=== PATIENT | male | born 1985 | race Caucasian/White ===

== ENCOUNTER 2025-04-20 16:23 | Emergency (ER) | payer MEDICARE, SELFPAY ==
[2025-04-20] VITALS (8 sets, daily range): BP systolic 156–204; BP diastolic 92–126; PULSE 98–109; RESP 17–22; TEMP 36.9; O2SAT 95–99
--- NOTE | ~2025-04-20 | XR_ITS ---
XR chest 1V portable 04/20/2025 18:12 Indication: Shortness of breath Procedure: AP portable chest Comparison: No prior studies for comparison. Findings: Cardiomegaly with mild interstitial edema. Central venous catheter tips in the SVC. No significant effusion. No pneumothorax. No acute osseous abnormality. Mild dextrocurvature of the thoracic spine. Impression: 1: Cardiomegaly with mild interstitial edema. Reviewed, dictated and finalized at location O. Impression: 1: Cardiomegaly with mild interstitial edema.
--- OUTSIDE RECORDS SUMMARY | 2025-04-20 11:38 | XMS_ITS | Encounter Summary ---
Author Organization [facility] Address [address] [place] [address] Care Team Providers Care Industry Analyst Name Role Phone Pcp, None Primary Care Provider Unavailabl e Reason for Visit * Reason Comments Hypertension Missed dialysis for a . Feeling tachy and BP elevated. Encounter Details Date Type Department Care Team (Late st Contact Info) Description 04/20/2025 11:38 AM CDT - 04/20/2025 12:10 PM CDT Emergency ER at [address] [address] Yong Sylvester [address] [place] [id number] Hemodialysis patient Discharge Disposition: Left Against Medical Advice/Discontinued Care Social History Tobacco Use Types Packs/Day Years Used Date Smoking Tobacco: Never Assessed AUDIT-C Answer Date Recorded Q1: How often do you have a drink containing alc ohol? Monthly or less 03/22/2025 Average Number of Drinks Not on file 025 Frequency of Binge Drinking Not on file 02/25 Sex and Gender Information Value Date Recorded Sex Assigned at Not on file Legal Sex Male 12:29 PM [employer]ILVER [employer] Gender Identity Not on file Sexual Orientation Not on file documented as of this encounter Last Filed Vital Signs Vital Sign Reading Time Taken Comments Blood Pressure 213/135 04/20/2025 11:48 AM CDT Pulse 107 04/20/2025 11:48 AM CDT Temperature 37.1 C (98.7 F) 04/20/2025 11:48 AM CDT Respiratory Rate 16 04/20/2025 11:4 8 AM CDT Oxygen Saturation 99% 04/20/2025 11: 48 AM CDT Inhaled Oxygen Concentration - - Weight 126.8 kg (279 lb 9.6 oz) 025 11:48 AM CDT Height 177.8 cm (5' 10) 04/20/2025 11: 48 AM CDT Body Mass Index 40.12 04/20/2025 11:48 AM CDT documented in this encounter Medications at Time of Discharge apixaban (Eliquis) 5 MG tablet Take 1 (one) tablet by mouth 2 times daily carvedilol (Coreg) 25 MG tablet Take 1 (one) tablet by mouth 2 times daily with morning and evening meal dilTIAZem ER 24hr (Tiazac) 120 MG capsule Take 1 (one) capsule by mouth once daily diphenhydrAMINE (Benadryl) 50 MG capsuleIndication s:itching Take 1 (one) capsule by mouth every 4 hours as needed for Itching Reasons: itching hydrALAZINE (Apresoline) 25 MG tablet Take 1 (one) tablet by mouth 2 times daily as needed (For hypertension) 10 tablet 03/15/2025 losartan (Cozaar) 100 MG tablet Take 1 (one) tablet by mouth once daily documented as of this encounter ED Notes * Nereyda Pendleton RN - 04/20/2025 12:04 PM CDT Before triage could be completed, MD saw pt and pt decided he wants to leave and take self to [facility] due to us not having dialysis services. Pt stated that he called this hospital andthe steam tank operator told him that we have dialysis. We do not have an steam tank operator today and our calls go to [facility] and are then transferred if needed. Pt BP elevated. Pt is out of town for a . Unclear if he has or has not taken his daily medications. Pt did state that he was supposed to have dialysis today but could not make it. He does dialysis at an outpt facility in [facility]. His family advocate is Dr Ardon that runs that clinic per pt. MD note available for reason pt signed out AMA. AMA paperwork signed by pt. Pt ambulated to door with steady gait. Pt is alert and oriented x4. Pt is not SI or HI. * Yong Sylvester, DO - 04/20/2025 11:58 AM CDT Oliver Betina Frederic [id number] ER AT [facility] History Chief Complaint Patient presents with Hypertension Missed dialysis for a . Feeling tachy and BP elevated. Very nice gentleman. He said he is here for a that he has to go to in [place]. Apparently he called an [facility] number and asked if they have dialysis or if he needs to be admitted for dialysis and apparently he called this number here at [facility] but we do not have an steam tank operator so our phones are forwarded to [facility] and the steam tank operator at [facility] answered and stated they do have dialysis at that facility since we do not have dialysis at the [facility] facility. Patient Google the number he called which was this. Number however, it was forwarded the [facility] but patient came here asking for dialysis. He states he does not want to be seeing here. He does not want any meds here. He does not want to leave his car here because he has the . He said he drove himself here just fine so he could drive himself to [facility] just fine. He is on dialysis and he missed dialysis so that is why he maybe a little dizzy or blood pressure is up no chest pain no other problems that would preclude him from driving a few miles up the street. He will sign AMA papers since he did not want an IV started, medicine started, or transfer by ambulance since he needs his car for the . Patient will sign out AMA. General Past Medical History[1] Past Surgical History[2] Family History[3] Social History Socioeconomic History Marital status: Single Spouse name: Not on file Number of children: Not on file Years of education: Not on file Highest education level: Not on file Occupational History Not on file Tobacco Use Smoking status: Not on file Smokeless tobacco: Not on file Substance and Sexual Activity Alcohol use: Not on file Drug use: Not on file Sexual activity: Not on file Other Topics Concern Not on file Social History Narrative Not on file Social Drivers of Health Financial Resource Strain: Low Risk (01/29/2025) Received from [facility] ([facility]) Financial Resource Strain Sometimes people find that their income does not quite cover their living costs. In the last 12 months, has this happened to you?: No What is your current work situation? : Unemployed, and not seeking work (ex: student, retired, disabled, unpaid primary auto care center manager) Recent Concern: Financial Resource Strain - Medium Risk (12/30/2024) Received from [facility] Overall Financial Resource Strain (CARDIA) Difficulty of Paying Living Expenses: Somewhat hard Food Insecurity: No Food Insecurity (02/21/2025) Received from [facility] Hunger Vital Sign Worried About Running Out of Food in the Last Year: Never true Ran Out of Food in the Last Year: Never true Transportation Needs: No Transportation Needs (02/21/2025) Received from [facility] PRAPARE - Transportation Lack of Transportation (Medical): No Lack of Transportation (Non-Medical): No Recent Concern: Transportation Needs - High Risk (01/29/2025) Received from [facility] ([facility]) Transportation Has a lack of transportation kept you from medical appointments, meetings, work, or from getting things needed for daily living. Check all that apply. : Yes, it has kept me from medical appointments or from getting my medications Stress: Low Risk (01/29/2025) Received from [facility] ([facility]) Stress Over the last 2 weeks, how often have you been bothered by the following problems: feeling nervous,anxious, on edge?: Several days Over the last 2 weeks, how often have you been bothered by the following problems: Not being able to stop or control worrying?: Several days Housing Stability: Low Risk (02/21/2025) Received from [facility] Housing Stability Vital Sign Unable to Pay for Housing in the Last Year: No Number of Times Moved in the Last Year: 1 Homeless in the Last Year: No Recent Concern: Housing Stability - High Risk (01/29/2025) Received from [facility] ([facility]) Housing Stability Are you worried about losing your housing?: Yes In the past 12 months has the electric, gas, oil, or water company threatened to shut off services in your home?: Yes Review of Systems Review of Systems All other systems reviewed and are negative. Physical Exam BP (!) 213/135 Pulse 107 Temp 98.7 ??F (37.1 ??C) Resp 16 Ht 1.778 m (5' 10) Wt 126.8 kg(279 lb 9.6 oz) SpO2 99% BMI 40.12 kg/m?? Physical Exam Vitals and nursing note reviewed. Constitutional: General: He is not in acute distress. Appearance: He is ill-appearing. He is not toxic-appearing. Comments: CRF on HD Neurological: Mental Status: He is alert. Medications Medications[4] Procedures Procedures Lab Interpretation Oxygen Saturation Interpretation No results found for this visit on 04/20/25. No orders to display Progress Notes ED Course Clinical Impressions as of 04/20/25 1202 Hemodialysis patient Medical Decision Making Very nice gentleman. He said he is here for a that he has to go to in [place]. Apparently he called an [facility] number and asked if they have dialysis or if he needs to be admitted for dialysis and apparently he called this number here at [facility] but we do not have an steam tank operator so our phones are forwarded to [facility] and the steam tank operator at [facility] answered and stated they do have dialysis at that facility since we do not have dialysis at the [facility] facility. Patient Google the number he called which was this. Number however, it was forwarded the [facility] patient came here asking for dialysis. He states he does not want to be seeing here. He does not want any meds here. He does not want to leave his car here because he has the . He said he drove himself here just fine so he could drive himself to [facility] just fine. He is on dialysis and he missed dialysis so that is why he maybe a little dizzy or blood pressure is up no chest pain no other problems that would preclude him from driving a few miles up the street. He will sign AMA papers since he did not want an IV started, medicine started, or transfer by ambulance since he needs his car for the . Patient will sign out AMA. Based on the Medical Screening exam and diagnostics performed at this time, further evaluation including blood work lab work medicine for his blood pressure. Possible further evaluation may need medical admission for chronic renal failure and hemodialysis. is indicated, but the patient refuses further evaluation and treatment. Risks of evaluation/treatment refusal discussed in detail including dying permanent disability. But we do not have hemodialysis at this facility. He does not want labs IVs meds he needs his car for a .. The patient voices understanding and appears clinically competent to make this decision. The patient understands that he/she may return to the ED for re-evaluation at any point. Patient accepts 100 percent responsibility for leaving AMA but we do not have the services he called for and thought he was coming to that facility. He will drive himself up the street to [facility] No orders of the defined types were placed in this encounter. ICD-10-CM 1. Hemodialysis patient Z99.2 [1] No past medical history on file. [2] No past surgical history on file. [3] No family history on file. [4] Current Outpatient Medications Medication Sig Dispense Refill apixaban (Eliquis) 5 MG tablet Take 1 (one) tablet by mouth 2 times daily hydrALAZINE (Apresoline) 25 MG tablet Take 1 (one) tablet by mouth 2 times daily as needed (For hypertension) 10 tablet 0 * Nereyda Pendleton RN - 04/20/2025 11:48 AM CDT Missed dialysis for a . Feeling tachy and BP elevated. documented in this encounter Plan of Treatment Not on file documented as of this encounter Visit Diagnoses Diagnosis Hemodialysis patient Renal dialysis status documented in this encounter Care Teams Industry Analyst Relationship Specialty Start Date End Date Pcp, None [address] [place] [address] PCP - General 03/15/25 documented as of this encounter
--- OUTSIDE RECORDS SUMMARY | 2025-04-20 13:05 | XMS_ITS | Encounter Summary ---
Author Organization [facility] Address [address] [place] [address] Care Team Providers Care Automation Tester Name Role Phone Pcp, None Primary Care Provider Unavailabl e Reason for Visit * Reason Comments Shortness of Breath Pt presents walk in for missing scheduled dialysis today, pt typically is T Th Sat regimen. Pt currently experiencing SOB, headache, and dizziness. BP 216/139. Pt has hx of kidney failure, afib and mitral stenosis. 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 Gender Identity Not on file Sexual Orientation Not on file documented as of this encounter Last Filed Vital Signs Vital Sign Reading Time Taken Comments Blood Pressure 203/143 04/20/2025 2:45 PM CDT Pulse 106 04/20/2025 2:45 PM CDT Temperature 37 C (98.6 F) 04/20/2025 12:29 PM CDT Respiratory Rate 22 04/20/2025 12:29 PM CDT Oxygen Saturation 97% 04/20/2025 2:45 PM CDT Inhaled Oxygen Concentration - - Weight 122.5 kg (270 lb) 04/20/2025 12:29 PM CDT Height 177.8 cm (5' 10) 04/20/2025 12:29 PM CDT Body Mass Index 38.74 04/20/2025 12:29 PM CDT documented in this encounter Discharge Instructions * Discharge Instructions* Odell Bird DO - 04/20/2025 2:38 PM CDT You were seen in the emergency department for shortness of breath and having this dialysis today. Fortunately your potassium was normal, the EKG is unremarkable, and we were able to treat your blood pressure. Please follow up with the primary doctor soon as possible and go to dialysis as scheduled.Return to the emergency department if you have chest pain, trouble breathing, or for any other emergencies. documented in this encounter Medications at Time [...] as of this encounter ED Notes * Sidney Christianson, MAICO - 04/20/2025 3:03 PM CDT Pt states tht he would like to go home at this time and take his home medications as opposed to ours at this time . Physician notified and patient will be DC at this time. * Marge Odell Vargas DO - 04/20/2025 1:07 PM CDT [facility] [id number] ER AT [facility] History Chief Complaint Patient presents with Shortness of Breath Pt presents walk in for missing scheduled dialysis today, pt typically is T Th Sat regimen. Pt currently experiencing SOB, headache, and dizziness. BP 216/139. Pt has hx of kidney failure, afib and mitral stenosis. HPI 39-year-old male with a PMH ESRD on Thursday hemodialysis Mrs. Scheduled dialysis today so that he could drive here for a . The patient lives in [place], [place]. Past Medical History[1] Past Surgical History[2] Family [...] Resource Strain: Low Risk (01/29/2025) [facility] ([facility]) Financial Resource Strain Sometimes people find that their income does not quite cover their living costs. In the last 12 months, has this happened to you?: No What is your current work situation? 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) Recent Concern: Financial Resource Strain - Medium Risk (12/30/2024) Received from [facility] Financial Resource Strain (CARDIA) Difficulty of Paying Living Expenses: Somewhat hard Food Insecurity: No Food Insecurity (02/21/2025) Received from [facility] Hunger Vital Sign Worried About Running Out of Food in the Last Year: Never true Ran Out of Food in the Last Year: Never true Transportation Needs: No Transportation Needs (02/21/2025) Received from [facility] PRAPARE - Transportation Lack of Transportation (Medical): No Lack of Transportation (Non-Medical): No Recent Concern: Transportation Needs - High Risk (01/29/2025) Received from [facility] ([facility]) Transportation Has a lack of transportation kept you from medical appointments, meetings, work, or from getting things needed for daily living. Check all that apply. : Yes, it has kept me from medical appointments or from getting my medications Stress: Low Risk (01/29/2025) Received from [facility] ([facility]) Stress Over the last 2 weeks, how often have you been bothered by the following problems: feeling nervous,anxious, on edge?: Several days Over the last 2 weeks, how often have you been bothered by the following problems: Not being able to stop or control worrying?: Several days Housing Stability: Low Risk (02/21/2025) Received from [facility] Housing Stability Vital Sign Unable to Pay for Housing in the Last Year: No Number of Times Moved in the Last Year: 1 Homeless in the Last Year: No Recent Concern: Housing Stability - High Risk (01/29/2025) Received from [facility] ([facility]) Housing Stability Are you worried about losing your housing?: Yes In the past 12 months has the electric, gas, oil, or water company threatened to shut off services in your home?: Yes Review of Systems ROS As above otherwise negative. Physical Exam BP (!) 216/139 (BP Location: Left arm, Patient Position: Sitting) Pulse 101 Temp 98.6 ??F (37 ??C) (Oral) Resp 22 Ht 1.778 m (5' 10) Wt 122.5 kg (270 lb) SpO2 100% BMI 38.74 kg/m?? Physical Exam Gen: A&Ox4, NAD HEENT: no facial trauma. No trismus/drooling, no stridor. CV: Tachycardia with regular rhythm, hypertensive, S1/S2, no 3/6 systolic murmur Resp: CTA all quesada, no dyspnea, no increased work of breathing Abd: soft, ND/NT, no peritoneal findings MSK: moves all equally, no deformities, no joint effusions Skin: warm/dry/intact Medications Medications[4] Procedures Procedures Lab Interpretation Oxygen Saturation Interpretation No results found for this visit on 04/20/25. No orders to display XR CHEST 1VW PORTABLE DATE/TIME OF EXAM: 04/20/2025 1:36 PM CLINICAL INFORMATION: None relevant/not provided if blank. Indication: R06.02: SOB (shortness of breath) Additional History: COMPARISON: March 15, 2025 FINDINGS: Single frontal view of the chest demonstrates a normal sized heart and pulmonary vasculature. The lung quesada are hypoaerated with resultant prominence of interstitial markings. Possible mild pulmonary vascular congestion. Right-sided tunneled dialysis catheter is unchanged. No focal consolidation, pleural effusion or pneumothorax. No acute osseous abnormalities. IMPRESSION: Limited study with possible mild pulmonary vascular congestion. > Interpreting Provider: Dominguez Peralta MD on 04/20/2025 1:50 PM Progress Notes ED Course Clinical Impressions as of 04/20/25 1307 SOB (shortness of breath) Medical Decision Making Amount and/or Complexity of Data Reviewed Labs: ordered. Radiology: ordered. ECG/medicine tests: ordered. Risk Prescription drug management. I reviewed pertinent chart histories. Ancillary background information: Chart review Problems addressed: Missed dialysis, hypertension Pertinent PMH addressed: Differential diagnoses: Hyperkalemia, fluid overload, medication noncompliance EKG: [1235] HR 106 [place] 174 QRS 90 QT 344. Sinus tachycardia with benign early repolarization but otherwise No ST elevations or depressions, no blocks or dysrhythmias. My contemporaneous impression of radiologic studies: On my view of the chest x- ray there is no florid pulmonary edema. Medications I ordered: Labetalol Consults: Disposition: Discharge Summary: The patient was seen in the emergency department for subjective shortness of breath and his concernthat he missed a dialysis today. Fortunately his EKG does not show any peaked T-waves and potassiumis well within normal limits. Chest x- ray is performed to evaluate for fluid overload and this is not seen. I have counseled the patient on the nature of their pain/symptoms, their results, what to expect and how to manage their symptoms. I have also given my typical strict return precautions and let them know that are always welcome to call or return to the ED if their symptoms are not improving or theydevelop new or progressive symptoms. Specific warnings are outlined in discharge instructions. The patient was instructed to follow up with their physician. All questions and concerns presented at the time of discharge were answered. Orders Placed This Encounter EKG 12-Lead [1] No past medical history on file. [2] No past surgical history on file. [3] No family history on file. [4] Current Outpatient Medications Medication Sig Dispense Refill apixaban (Eliquis) 5 MG tablet Take 1 (one) tablet by mouth 2 times daily carvedilol (Coreg) 25 MG tablet Take 1 (one) tablet by mouth 2 times daily with morning and eveningmeal dilTIAZem ER 24hr (Tiazac) 120 MG capsule Take 1 (one) capsule by mouth once daily diphenhydrAMINE (Benadryl) 50 MG capsule Take 1 (one) capsule by mouth every 4 hours as needed for Itching Reasons: itching hydrALAZINE (Apresoline) 25 MG tablet Take 1 (one) tablet by mouth 2 times daily as needed (For hypertension) 10 tablet 0 losartan (Cozaar) 100 MG tablet Take 1 (one) tablet by mouth once daily documented in this encounter Plan of Treatment Pending Results Name Type Priority Associated Diagnoses Date /Time EKG 12-Lead ECG Routine SOB (shortness of breath) 04/20/2025 12:35 PM CDT documented as of this encounter Procedures Procedure Name Priority Date/Time Associated Diagnosis Comments XR CHEST 1VW PORTABLE STAT 04/20/2025 1:36 PM CDT SOB (shortness of breath) CBC W AUTO DIFFERENTIAL STAT 04/20/2025 1:19 PM CDT BASIC METABOLIC PANEL (CALCIUM TOTAL) STAT 04/20/2025 1:19 PM CDT EKG 12-LEAD Routine 04/20/2025 12:35 PM CDT SOB (shortness of breath) documented in this encounter Results * XR CHEST 1VW PORTABLE (04/20/2025 1:36 PM CDT) Anatomical Region Laterality Modality Chest Computed Radiogr aphy 04/20/2025 1:49 PM CDT Impressions 04/20/2025 1:50 PM CDT IMPRESSION: Limited study with possible mild pulmonary vascular congestion. > Interpreting Provider: Dominguez Peralta MD on 04/20/2025 1:50 PM Narrative 04/20/2025 1:50 PM CDT PROCEDURE: XR CHEST 1VW PORTABLE DATE/TIME OF EXAM: 04/20/2025 1:36 PM CLINICAL INFORMATION: None relevant/not provided if blank. Indication: R06.02: SOB (shortness of breath) Additional History: COMPARISON: March 15, 2025 FINDINGS: Single frontal view of the chest demonstrates a normal sized heart and pulmonary vasculature. The lung quesada are hypoaerated with resultant prominence of interstitial markings. Possible mild pulmonary vascular congestion. Right-sided tunneled dialysis catheter is unchanged. No focal consolidation, pleural effusion or pneumothorax. No acute osseous abnormalities. Procedure Note Dominguez Peralta MD - 04/20/2025 PROCEDURE: XR CHEST 1VW PORTABLE DATE/TIME OF EXAM: 04/20/2025 1:36 PM CLINICAL INFORMATION: None relevant/not provided if blank. Indication: R06.02: SOB (shortness of breath) Additional History: COMPARISON: March 15, 2025 FINDINGS: Single frontal view of the chest demonstrates a normal sized heart and pulmonary vasculature. The lung quesada are hypoaerated with resultant prominence of interstitial markings. Possible mild pulmonary vascular congestion. Right-sided tunneled dialysis catheter is unchanged. Nofocal consolidation, pleural effusion or pneumothorax. No acute osseous abnormalities. IMPRESSION: Limited study with possible mild pulmonary vascular congestion. > Interpreting Provider: Dominguez Peralta MD on 04/20/2025 1:50 PM us Odell R Canine DO DIAGNOSTIC IMAGING ORDERABLES F inal Result * (ABNORMAL) BASIC METABOLIC PANEL (CALCIUM TOTAL) (04/20/2025 1:19 PM CDT) Glucose 98 70 - 99 mg/dL 04/20/2025 1:37 PM CDT [facility] Sodium 139 136 - 145 mmol/L 04/20/2025 1:37 PM CDT [facility] Potassium 4.8 3.5 - 5.1 mmol/L 04/20/2025 1:37 PM CDT [facility] Chloride 99 98 - 107 mmol/L 04/20/2025 1:37 PM CDT [facility] CO2 23 22 - 29 mmol/L 04/20/2025 1:37 PM CDT [facility] Calcium 9.8 8.4 - 10.4 mg/dL 04/20/2025 1:37 PM CDT [facility] Anion Gap 17(H) 6 - 16 mmol/L 04/20/2025 1:37 PM CDT [facility] BUN 38(H) 5.3 - 18.7 mg/dL 04/20/2025 1:37 PM CDT [facility] Creatinine 10.88(H) 0.72 - 1.25 mg/dL 04/20/2025 1:37 PM CDT [facility] eGFR by CKD-EPI 6(L) >=90 mL/min/1.7 3 m2 04/20/2025 1:37 PM CDT [facility] Comment:Estimated Glomerular Filtration Rate (eGFR) calculated using the CKD-EPI Creatinine Equation (2020), per the National Kidney Foundation and [place] [employer] Neph[employer] recommendations. Blood BLOOD SPECIMEN / Unknown Venipuncture / Unknown 04/20/2025 1:19 PM CDT 04/20/2025 1:21 PM CDT us Odell R Canine DO LAB - CHEMISTRY ORDERABLES Shanae carrillo Result [facility] [address] [place] [address] * (ABNORMAL) CBC W AUTO DIFFERENTIAL (04/20/2025 1:19 PM CDT) WBC 9.5 4.0 - 10.7 x10E9/L 04/20/2025 1:25 PM CDT [facility] RBC Count 3.08(L) 4.30 - 5.80 x10E12/L 04/20/2025 1:25 PM CDT [facility] Hemoglobin 9.2(L) 13.3 - 17.5 g/dL 04/20/2025 1:25 PM CDT [facility] Hematocrit 28.5(L) 38.7 - 51.1 % 04/20/2025 1:25 PM CDT [facility] MCV 92.5 80.0 - 98.0 fL 04/20/2025 1:25 PM CDT [facility] MCH 29.9 26.7 - 33.6 pg 04/20/2025 1:25 PM CDT [facility] MCHC 32.3 31.7 - 36.3 g/dL 04/20/2025 1:25 PM CDT [facility] RDW-CV 14.9(H) 11.3 - 14.8 % 04/20/2025 1:25 PM CDT [facility] Platelet Count 294 150 - 420 x10E9/L 04/20/2025 1:25 PM CDT [facility] MPV 8.9 7.8 - 11.4 fL 04/20/2025 1:25 PM CDT [facility] Neutrophil % 63.7 41.0 - 74.0 % 04/20/2025 1:25 PM CDT [facility] Lymphocyte % 19.1 17.0 - 47.0 % 04/20/2025 1:25 PM CDT [facility] Monocyte % 9.9 3.0 - 11.0 % 04/20/2025 1:25 PM CDT [facility] Eosinophil % 6.6 0.0 - 7.0 % 04/20/2025 1:25 PM CDT [facility] Basophil % 0.5 0.0 - 1.6 % 04/20/2025 1:25 PM CDT [facility] Immature Granulocytes % 0.2 0.0 - 1.0 % 04/20/2025 1:25 PM CDT [facility] Neutrophil Absolute 6.04 1.60 - 7.50 x10E9/L 04/20/2025 1:25 PM CDT [facility] Lymphocyte Absolute 1.81 1.00 - 4.40 x10E9/L 04/20/2025 1:25 PM CDT [facility] Monocyte Absolute 0.94 0.15 - 1.00 x10E9/L 04/20/2025 1:25 PM CDT [facility] Eosinophil Absolute 0.63(H) 0.00 - 0.60 x10E9/L 04/20/2025 1:25 PM CDT [facility] Basophil Absolute 0.05 0.00 - 0.13 x10E9/L 04/20/2025 1:25 PM CDT [facility] Blood BLOOD SPECIMEN / Unknown Venipuncture / Unknown 04/20/2025 1:19 PM CDT 04/20/2025 1:21 PM CDT us Odell R Canine DO LAB - HEMATOLOGY ORDERABLES Fin al [facility] [address] [place] [address] documented in this encounter Visit Diagnoses Diagnosis SOB (shortness of breath)- Primary Shortness of breath documented in this encounter Administered Medications Inactive Administered Medications - up to 3 most recent administrations Medication Order MAR Action Action Date Dose Rate Site labetalol (Normodyne; Trandate) injection 20 mg 20 mg, Intravenous, NOW, 1 dose, On [place] 04/20/25 at 1315, Max IV dose is 300mg/24 hours. $ Given 04/20/2025 1:23 PM CDT 20 mg documented in this encounter Active and Recently Administered Medications Times are shown in CDT. Scheduled Medication Order 04/18/2025 04/19/2025 04/20/2025 labetalol (Normodyne; Trandate) injection 20 mg (COMPLETED) 20 mg, Intravenous, NOW, 1 dose, On [place] 04/20/25 at 1315, Max IV dose is 300mg/24 hours. 1323 ($ Given - Prov ider: Sidney Christianson RN) labetalol (Normodyne; Trandate) injection 20 mg 20 mg, Intravenous, NOW, 1 dose, On [place] 04/20/25 at 1445, Max IV dose is 300mg/24 hours. 1445 (Due) documented in this encounter Care Teams Automation Tester Relationship Specialty Start Date End Date Pcp, None [address] [place] [address] PCP - General 03/15/25 documented as of this encounter
--- NOTE | 2025-04-20 16:51 | ECG_ITS ---
Test Date: 2025-04-20 16:55:11 Measurements Intervals [place] Rate: 107 P: 53 TX: 176 QRS: 16 QRSD: 96 T: 57 QT: 340 QTc: 454 Interpretive Statements SINUS TACHYCARDIA LEFT ATRIAL ENLARGEMENT [-0.15mV P-WAVE IN V1/V2] POSSIBLE LEFT VENTRICULAR HYPERTROPHY [VOLTAGE CRITERIA PLUS LAE OR QRS WIDENING] No previous ECG available for comparison Electronically Signed On 04-20-2025 19:07:59 CDT by Fab Salinas M.D.
--- NOTE | 2025-04-20 17:12 | ED_ITS ---
HPI - SOB/Dyspnea General Chief Complaint: Shortness of Breath/Dyspnea Stated Complaint: NEEDS DIALYSIS, SOB,CHRONIC LEG WOUNDS Time Seen by Provider: 04/20/25 16:54 History of Present Illness HPI Narrative: Pt is a 39-year-old male who presents to the ER with complaints of shortness of breath and lower extremity edema. He reports he usually gets dialysis Tuesdays, , and Saturdays. Patient reports he missed dialysis today because he needed to leave town ([place], [place]) early to get to a in [place]. He reports he was feeling so crummy while driving that he stopped and got a hotel room for the night. Patient reports he is fluid overloaded as he is up 6 kilos from his dry weight. He reports his utilization coordinator is out of [place], [place]. Patient reports he called [facility] and they told him they could get him dialyzed on Thursday afternoon. He reports he usually gets 4 L taken off med dialysis. Patient endorses a history of venous stasis ulcers, CHF, AFib, and mitral valve stenosis. He reports he has no history of diabetes. Patient denies any chest pain, new onset back pain, or recent fevers. He endorses significant pain to his lower extremities around his penis ulcer sites. Patient reports he usually gets Dilaudid 0.5 mg IV for pain control, which he also takes at home, in PO form, as needed. Related Data Allergies Allergy/AdvReac Type Severity Reaction Status Date / Time Fish Containing Products Allergy Anaphylaxis Verified 04/20/25 17:23 Review of Systems 2 Review of Systems: All systems reviewed & are unremarkable except as noted in HPI and below Exam 2 Narrative: GENERAL: Well appearing, obese, non-toxic, in no acute distress. HEAD: Normocephalic, atraumatic. NECK: Supple. No adenopathy, no masses. RESPIRATORY: Airway patent, respirations nonlabored. Clear to auscultation bilaterally, no rales, rhonchi, wheezing. CARDIOVASCULAR: Regular rate, significant murmur (baseline). Peripheral pulses 2+ and equal bilaterally. Bilateral edema to lower extremities. ABDOMINAL: Soft, nontender, nondistended, no hepatosplenomegaly. Normoactive BS. MUSCULOSKELETAL: Moves all extremities. Strength/ROM intact without gross deformities. SKIN: Warm, dry, normal color. No rashes. NEURO: A&O X3. Speech clear. Cranial nerves II-XII intact. No ataxic movements. PSYCHIATRIC: Appropriate mood and affect. Normal interaction. Course Vital Signs Vital signs: Vital Signs Temperature 36.9 C 04/20/25 16:28 Pulse Rate 109 H 04/20/25 16:28 Respiratory Rate 18 04/20/25 16:28 Blood Pressure 204/117 H 04/20/25 16:28 Pulse Oximetry 98 04/20/25 16:28 Oxygen Delivery Room Air 04/20/25 16:28 Temperature 36.9 C 04/20/25 17:22 Pulse Rate 100 04/20/25 19:37 Respiratory Rate 20 04/20/25 19:36 Blood Pressure 156/92 H 04/20/25 19:36 Pulse Oximetry 98 04/20/25 19:36 Oxygen Delivery Room Air 04/20/25 17:02 MDM - SOB/Dyspnea MDM Narrative Medical decision making narrative: Pt is a 39-year-old male who presents to the ER with complaints of shortness of breath and lower extremity edema. He reports he usually gets dialysis Tuesdays, , and Saturdays. Patient reports he missed dialysis today because he needed to leave [facility] ([place], [place]) early to get to a in [place]. He reports he was feeling so crummy while driving that he stopped and got a hotel room for the night. Patient reports he is fluid overloaded as he is up 6 kilos from his dry weight. He reports his utilization coordinator is out of [place], [place]. Patient reports he called [facility] and they told him they could get him dialyzed on Thursday afternoon. He reports he usually gets 4 L taken off med dialysis. Patient endorses a history of venous stasis ulcers, CHF, AFib, and mitral valve stenosis. He reports he has no history of diabetes. Patient denies any chest pain, new onset back pain, or recent fevers. He endorses significant pain to his lower extremities around his penis ulcer sites. Patient reports he usually gets Dilaudid 0.5 mg IV for pain control, which he also takes at home, in PO form, as needed. Labs Ordered: CBC, CMP, proBNP Imaging Ordered: Chest x-ray Medications Ordered: Labetalol 20 mg IV x2, hydralazine 20 mg x 1, Dilaudid 0.5 mg IV Results: Patient's CBC indicates a red blood cell count of 3.5, hemoglobin of 8.9, hematocrit of 27.9%. His CMP indicates potassium of 5.3, anion gap of 16, BUN of 42, creatinine of 11.45, GFR 5, AST of 14, alk-phos of 133. His proBNP is greater than 30,000. Patient's chest x-ray indicates Cardiomegaly with mild interstitial edema. Diagnosis: Shortness of breath, history of dialysis, missed dialysis, lower extremity swelling Consults: 1729-nephrology, Dr. Lopez. Dr. Lopez explained if pt is not in respiratory distress and his potassium is not extremely high then pt can be discharge home, as this facility does not have capabilities of doing hemodialysis after hours. Patient Education/Shared MDM: Results of lab work and imaging shared with patient. He continues to be able to speak in full sentences and does not appear to be in respiratory distress when speaking with nurse practitioner. Patient's lab work results are consistent with a patient who receives hemodialysis. His potassium was mildly elevated but not excessive. Patient verbalized concerns about his high blood pressure, but after hydralazine at has come down nicely. He endorses mild improvement of symptoms following pain medication administration. Pt is requesting another dose of Dilaudid, but patient reports he has Dilaudid p.o. at home so he will not be given any more at this time. Patient strongly advised to contact his utilization coordinator, who may be able to guide him to a place near by that provides dialysis services during the day tomorrow. He will not be discharged home with any new prescriptions. Strict return precautions provided. Patient verbalized understanding and is in agreement with plan. Vital signs stable at time of discharge. All questions answered. Differential Diagnosis Differential diagnosis: Likely congestive heart failure and other (Missed dialysis, shortness of breath, elevated potassium, abnormal lab values) Lab Data Attestation: I reviewed the patient's lab results. 04/20/25 17:43 04/20/25 17:43 Labs: Lab Results 04/20/25 Range/Units 17:43 WBC 9.5 (4.5-10.0) K/mm3 RBC 3.05 L (4.6-6.20) M/mm3 Hgb 8.9 L (14.0-18.0) g/dL Hct 27.9 L (42.0-52.0) % MCV 91.5 (80-100) fl MCH 29.2 (26-34) pg MCHC 31.9 L (32-36) g/dl RDW 15.2 H (11.5-14.5) % Plt Count 296 (150-375) k/mm3 MPV 9.0 (7.4-10.4) fl Immature Gran % (Auto) 0.3 (0-0.5) % Neut % (Auto) 66.3 (45.5-73.1) % Lymph % (Auto) 17.8 L (18.3-44.2) % [place] % (Auto) 10.0 H (2.6-8.5) % Eos % (Auto) 5.3 H (0-4.4) % Baso % (Auto) 0.3 (0.2-1.2) % Lymph # (Auto) 1.68 (0.9-3.2) K/mm3 [place] # (Auto) 1.0 H (0.1-0.6) K/mm3 Eos # (Auto) 0.5 H (0-0.3) K/mm3 Baso # (Auto) 0.0 (0.0-0.1) K/mm3 Abs Immat Gran (auto) 0.03 (0.00-0.031) K/mm3 Absolute Neuts (auto) 6.3 (1.3-6.7) K/mm3 Absolute Nucleated RBC 0.000 (0.0-0.012) K/mm3 Nucleated RBC % 0.0 (0.0-0.2) % Sodium 137 (137-145) mmol/L Potassium 5.3 H (3.4-5.0) mmol/L Chloride 98 (98-107) mmol/L Carbon Dioxide 23 (22-30) mmol/L Anion Gap 16 H (4-12) mmol/L BUN 42 H (9-20) mg/dL Creatinine 11.45 H (0.7-1.3) mg/dL Estim Creat Clear Calc 11 ml/min Estimated GFR 5 L (59 - ) Glucose 102 (65-110) mg/dL Calcium 9.8 (8.4-10.2) mg/dL Total Bilirubin 0.6 (0.2-1.3) mg/dL AST 14 L (17-59) U/L ALT 12 (6-50) U/L Alkaline Phosphatase 133 H (38-126) U/L NT-Pro-B Natriuret Pep > 81706 H (19.9-100) pg/mL Total Protein 7.5 (6.3-8.2) g/dL Albumin 4.1 (3.5-5.1) g/dL Imaging Data Attestation: I personally reviewed and interpreted this imaging study as follows: Radiologist's impression: Impressions Chest X-Ray 04/20/25 18:12 Impression: 1: Cardiomegaly with mild interstitial edema. Discharge Plan Discharge Clinical Impression: Mild shortness of breath, History of hemodialysis, Swelling of both lower extremities, History of anemia of chronic renal failure Patient Disposition: Home Condition: Stable Instructions: Antibiotic Form Additional Instructions: Please return to the ER with any worsening symptoms. Follow-up with your utilization coordinator as soon as possible. Take all medications as prescribed, including regularly scheduled medications. Patient Language: Somali Follow-up/Referrals: PHYSICIAN NOT ON STAFF,NONSTAFF [Non-Staff] Time of Disposition: 20:04
--- OUTSIDE RECORDS SUMMARY | 2025-04-20 17:51 | XMS_ITS | Clinical Summary ---
Author Organization [facility] Address [address] [place] [address] Care Team Providers Care Freezing Machine Operator Name Role Phone Pcp, None Primary Care Provider Unavailabl e Source Comments [facility],non-owned Affiliates and Associated Physician Practices is amultiple site organization consisting of ambulatory clinics and hospital sitesin [place], [place], [place] and [place]. This disclosure is being madepursuant to the Care Everywhere program and may not contain all information available regarding this patient. Last updated 18.[facility] Allergies No known active allergies Medications * Be aware that medications may not be up to date on this document. Alwaysverify current medications with the patient. hydrALAZINE (Apresoline) 25 MG tablet Take 1 (one) tablet by mouth 2 times daily as needed (For hypertension ) 10 tablet 03/15/2025 Active apixaban (Eliquis) 5 MG tablet Take 1 (one) tablet by mouth 2 times daily Active carvedilol (Coreg) 25 MG tablet Take 1 (one) tablet by mouth 2 times daily with morning and evening meal Active dilTIAZem ER 24hr (Tiazac) 120 MG capsule Take 1 (one) capsule by mouth once daily Active losartan (Cozaar) 100 MG tablet Take 1 (one) tablet by mouth once daily Active diphenhydrAMINE (Benadryl) 50 MG capsuleIndicati ons:itching Take 1 (one) capsule by mouth every 4 hours as needed for Itching Reasons: itching Active Encounters Date Type Department Care Team Description 04/20/2025 1:05 PM CDT - 04/20/2025 3:05 PM CDT Emergency ER at [facility] [address] [place] [address] Odell Bird DO SOB (shortness of breath) (Primary Dx) Discharge Disposition: Home or Self Care 04/20/2025 11:38 AM CDT - 04/20/2025 12:10 PM CDT Emergency ER at [address] [address] Yong Sylvester DO Hemodialysis patient Discharge Disposition: Left Against Medical Advice/Discontinued Care 04/20/2025 Travel 03/22/2025 5:52 PM CDT - 03/22/2025 7:44 PM CDT Emergency ER at [address] [address] Jaciel Rodriguez MD Chronic renal failure, unspecified CKD stage; Hypertensive urgency; Elevated troponin; Anemia, unspecified type Discharge Disposition: Left Against Medical Advice/Discontinued Care 03/17/2025 7:05 PM CDT - 03/18/2025 12:48 AM CDT Emergency ER at [address] [address] Vaibhav Stahl MD Hypertensive urgency (Primary Dx); Tachycardia; End stage renal disease (HCC) Discharge Disposition: Inpatient Hospital 03/17/2025 Travel 03/15/2025 5:06 PM CDT - 03/15/2025 10:10 PM CDT Emergency ER at [address] [address] Near syncope; Elevated troponin; Essential hypertension Discharge Disposition: Home or Self Care 03/15/2025 Travel from Last 3 Months Social History Tobacco Use Types Packs/Day Years [...] on file 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 Gender Identity Not on file Sexual Orientation Not on file Last Filed Vital Signs Vital Sign Reading [...] Mass Index 38.74 04/20/2025 12:29 PM CDT Plan of Treatment Health Maintenance Due Date Last Done Comments MEDICARE AWV 12 MONTHS 1985 DTAP/TDAP/TD VACCINES (1 - Tdap) 2004 PNEUMOCOCCAL VACCINE (1 of 2 - PCV) 2004 HEPATITIS B VACCINE (1 of 3 - Risk Dialysis 4-dose series) 2005 HPV VACCINE (1 - 3-dose SCDM series) 2012 DEPRESSION SCREENING 07/27/2024 COVID-19 VACCINE (4 - 2024- season) 2025 07/18/2021, 12/18/2020, 11/20/2020 INFLUENZA VACCINE (#1) 2025 03/31/2017 ZOSTER VACCINE (1 of 2) 2035 HIV SCREENING Completed 11/01/2023 HEPATITIS C SCREENING Completed 02/22/2025 , 02/22/2025, 02/22/2025, Additional history exists HIB VACCINE Aged Out No longer eligi ble based on patient's age to complete this topic MENINGOCOCCAL (Group B) VACCINE SHARED DECISION-MAKING Aged Out No longer eligible based on patient's age to complete this topic MENINGOCOCCAL GROUPS A/C/Y/W VACCINE Aged Out No longer eligible based on patient's age to complete this topic Procedures Procedure Name Priority Date/Time Associated Diagnosis Comments XR CHEST 1VW PORTABLE STAT 04/20/2025 1:36 PM CDT SOB (shortness of breath) BASIC METABOLIC PANEL (CALCIUM TOTAL) STAT 04/20/2025 1:19 PM CDT CBC W AUTO DIFFERENTIAL STAT 04/20/2025 1:19 PM CDT EKG 12-LEAD Routine 04/20/2025 12:35 PM CDT SOB (shortness of breath) CARDIAC EKG ORDER 03/23/2025 11: 41 AM CDT EKG 12-LEAD STAT 03/22/2025 6:23 PM CDT Chronic renal failure, unspecified CKD stage TROPONIN-I HIGH SENSITIVE BASELINE + 1HR Add on 03/22/2025 6:06 PM CDT MAGNESIUM BLOOD STAT 03/22/2025 6:06 PM CDT COMPREHENSIVE METABOLIC PANEL STAT 03/22/2025 6:06 PM CDT CBC W AUTO DIFFERENTIAL STAT 03/22/2025 6:06 PM CDT CARDIAC EKG ORDER 03/20/2025 2:1 5 PM CDT TROPONIN-I HIGH SENSITIVE REFLEX 1HOUR Timed 03/17/2025 9:13 PM CDT EKG 12-LEAD STAT 03/17/2025 7:57 PM CDT Tachycardia TROPONIN-I HIGH SENSITIVE BASELINE + 1HR STAT 03/17/2025 7:53 PM CDT COMPREHENSIVE METABOLIC PANEL STAT 03/17/2025 7:53 PM CDT CBC W AUTO DIFFERENTIAL STAT 03/17/2025 7:53 PM CDT ED CRITICAL CARE Routine 03/17/2025 7:38 PM CDT End stage renal disease (HCC) Hypertensive urgency CARDIAC EKG ORDER 03/16/2025 10: 07 AM CDT EKG 12-LEAD STAT 03/15/2025 8:30 PM CDT Elevated troponin TROPONIN-I HIGH SENSITIVE Timed 03/15/2025 7:25 PM CDT B-TYPE NATRIURETIC PEPTIDE STAT 03/15/2025 6:19 PM CDT TROPONIN-I HIGH SENSITIVE STAT 03/15/2025 6:19 PM CDT MAGNESIUM BLOOD STAT 03/15/2025 6:19 PM CDT COMPREHENSIVE METABOLIC PANEL STAT 03/15/2025 6:19 PM CDT CBC W AUTO DIFFERENTIAL STAT 03/15/2025 6:19 PM CDT XR CHEST 1VW PORTABLE STAT 03/15/2025 6:07 PM CDT Near syncope EKG 12-LEAD STAT 03/15/2025 4:49 PM CDT Near syncope from Last 3 Months Results * XR CHEST 1VW PORTABLE (04/20/2025 1:36 PM CDT) Only the most recent of2 resultswithin the time period is included. Anatomical Region Laterality Modality Chest Computed Radiogr aphy 04/20/2025 1:49 PM CDT Impressions 04/20/2025 1:50 PM CDT IMPRESSION: Limited study with possible mild pulmonary vascular congestion. > Interpreting Provider: Dominguez ePralta MD on 04/20/2025 1:50 PM Narrative 04/20/2025 [...] IMAGING ORDERABLES F inal Result * (ABNORMAL) CBC W AUTO DIFFERENTIAL (04/20/2025 1:19 PM CDT) Only the most recent of4 resultswithin the time period is included. WBC 9.5 4.0 - 10.7 x10E9/L 04/20/2025 1:25 PM CDT [facility] RBC Count 3.08(L) 4.30 - 5.80 x10E12/L 04/20/2025 1:25 PM CDT [facility] Hemoglobin 9.2(L) 13.3 - 17.5 g/dL 04/20/2025 1:25 PM CDT [facility] Hematocrit 28.5(L) 38.7 - 51.1 % [...] 04/20/2025 1:21 PM CDT us Odell R Marge KANG LAB - HEMATOLOGY ORDERABLES Fin al Result [facility] [address] [place] [address] * (ABNORMAL) BASIC METABOLIC PANEL (CALCIUM TOTAL) (04/20/2025 1:19 PM CDT) Pathologist [facility] Glucose 98 70 - 99 mg/dL 04/20/2025 1:37 PM CDT -[facility] Sodium 139 136 - 145 mmol/L 04/20/2025 1:37 PM CDT -[facility] Potassium 4.8 3.5 - 5.1 mmol/L 04/20/2025 1:37 PM CDT -[facility] Chloride 99 98 - 107 mmol/L 04/20/2025 1:37 PM CDT -[facility] CO2 23 22 - 29 mmol/L 04/20/2025 1:37 PM CDT -[facility] Calcium 9.8 8.4 - 10.4 mg/dL 04/20/2025 1:37 PM CDT -[facility] Anion Gap 17(H) 6 - 16 mmol/L 04/20/2025 1:37 PM CDT -[facility] BUN 38(H) 5.3 - 18.7 mg/dL 04/20/2025 1:37 PM CDT -[facility] Creatinine 10.88(H) 0.72 - 1.25 mg/dL 04/20/2025 1:37 PM CDT -[facility] eGFR by CKD-EPI 6(L) >=90 mL/min/1.7 3 m2 04/20/2025 1:37 PM CDT -[facility] Comment:Estimated Glomerular Filtration Rate (eGFR) calculated using the CKD-EPI Creatinine Equation (2020), per the National Kidney Foundation and [place] Society of Nephrology recommendations. Blood BLOOD SPECIMEN / Unknown Venipuncture / Unknown 04/20/2025 1:19 PM CDT 04/20/2025 1:21 PM CDT us Odell R Canine DO LAB - CHEMISTRY ORDERABLES Shanae l Result [facility] [address] [place] [id number] * CARDIAC EKG ORDER (03/23/2025 11:41 AM CDT) Only the most recent of3 resultswithin the time period is included. Narrative 03/23/2025 11:41 AM CDT Ordered by an unspecified provider. us Scanned Document CARDIAC SERVICES ORDERABLES Fin al Result * EKG 12-LEAD (03/22/2025 6:23 PM CDT) Only the most recent of4 resultswithin the time period is included. Ventricular Rate 96 BPM [facility] Atrial Rate 96 BPM [facility] P-R Interval 186 ms [facility] QRS Duration ms 94 ms [facility] Q-T Interval ms 372 ms [facility] QTC Calculation (Bezet) 469 ms [facility] Calculated P [place] 51 degrees [facility] Calculated R [place] 23 degrees [facility] Calculated T [place] 54 degrees [facility] Interpretation EKG Normal sinus rhythm Possible Left atrial enlargement Left ventricular hypertrophy ( R in aVL , Sokolow-Sierra , Freddy product , Romhilt-Sexton ) Abnormal ECG No significant change Confirmed by Manda FULLER, CHARLOTTE Simms ([id number]) on 03/23/2025 6:52:36 AM [facility] 03/22/2025 6:23 PM CDT 03/23/2025 6:52 AM CDT Jaciel Rodriguez MD ECG ORDERABLES Edited Result - Final [facility] * (ABNORMAL) TROPONIN-I HIGH SENSITIVE BASELINE + 1HR (03/22/2025 6:06 PM CDT) Only the most recent of2 resultswithin the time period is included. Troponin I High Sensitive 93(H) <=35 ng/L 03/22/2025 6:52 PM CDT [facility] Blood BLOOD SPECIMEN / Unknown Lab Venipuncture / Unknown 03/22/2025 6:06 PM CDT 03/22/2025 6:33 PM CDT Jaciel Rodriguez MD LAB - CHEMISTRY ORDERABLES Shanae carrillo Result [facility] [address] [id number], [facility] [phone] * (ABNORMAL) COMPREHENSIVE METABOLIC PANEL (03/22/2025 6:06 PM CDT) Only the most recent of3 resultswithin the time period is included. Sodium 142 136 - 145 mmol/L 03/22/2025 6:30 PM CDT [facility] Potassium 3.9 3.5 - 5.1 mmol/L 03/22/2025 6:30 PM CDT [facility] Chloride 98 98 - 107 mmol/L 03/22/2025 6:30 PM CDT [facility] CO2 28 22 - 29 mmol/L 03/22/2025 6:30 PM CDT [facility] Anion Gap 16 6 - 16 mmol/L 03/22/2025 6:30 PM T [facility] Glucose 189(H) 70 - 99 mg/dL 03/22/2025 6:30 PM CDT [facility] BUN 37(H) 5.3 - 18.7 mg/dL 03/22/2025 6:30 PM T [facility] Creatinine 8.92(H) 0.72 - 1.25 mg/dL 03/22/2025 6:30 PM T [facility] BUN/Creatinine Ratio 4.1(L) 11.7 - 20.6 03/22/2025 6:30 PM CDT [facility] Calcium 9.6 8.4 - 10.4 mg/dL 03/22/2025 6:30 PM CDT [facility] Protein Total 7.3 6.4 - 8.3 gm/dL 03/22/2025 6:30 PM CDT [facility] Albumin 3.5 3.1 - 4.5 gm/dL 03/22/2025 6:30 PM T [facility] ALT 9 6 - 57 U/L 03/22/2025 6:30 PM CDT [facility] AST 12 10 - 48 U/L 03/22/2025 6:30 PM CDT [facility] Alkaline Phosphatase 139 40 - 150 U/L 03/22/2025 6:30 PM CDT [facility] Bilirubin Total 0.3 0.2 - 1.2 mg/dL 03/22/2025 6:30 PM CDT [facility] Globulin Total 3.8 1.3 - 4.7 gm/dL 03/22/2025 6:30 PM CDT [facility] Albumin/Globulin Ratio 0.9(L) 1.1 - 2.2 03/22/2025 6:30 PM CDT [facility] Osmolality Calculated 288(H) 260 - 286 mOsm/kg 03/22/2025 6:30 PM CDT [facility] eGFR by CKD-EPI 7(L) >=90 mL/min/1.7 3 m2 03/22/2025 6:30 PM CDT [facility] Comment:Estimated Glomerular Filtration Rate (eGFR) calculated using the CKD-EPI Creatinine Equation (2020), per the National Kidney Foundation and [place] Society of Nephrology recommendations. Blood BLOOD SPECIMEN / Unknown Venipuncture / Unknown 03/22/2025 6:06 PM CDT 03/22/2025 6:10 PM CDT Narrative [facility] - 03/22/2025 6:30 PM CDT ADA Comment: The [place] Diabetes Association recommends a fasting glucose concentration of 99 mg/dL as the upper limit of normal. us Jaciel Rodriguez MD LAB - CHEMISTRY ORDERABLES Shanae carrillo Result [facility] [address] [place], [place] [address] [phone] * MAGNESIUM BLOOD (03/22/2025 6:06 PM CDT) Only the most recent of2 resultswithin the time period is included. Magnesium 2.2 1.6 - 2.6 mg/dL 03/22/2025 6:30 PM CDT [facility] Blood BLOOD SPECIMEN / Unknown Venipuncture / Unknown 03/22/2025 6:06 PM CDT 03/22/2025 6:10 PM CDT Jaciel Rodriguez MD LAB - CHEMISTRY ORDERABLES Shanae l Result Performing Organization Address [facility]/ZIP Co de Phone Number [facility] [address] [place] [address] * (ABNORMAL) TROPONIN-I HIGH SENSITIVE REFLEX 1HOUR (03/17/2025 9:13 PM CDT) Troponin I High Sensitive 79(H) <=35 ng/L 03/17/2025 9:43 PM CDT [facility] Delta Troponin I HS <0 <6 ng/L 03/17/2025 9:43 PM CDT [facility] Blood BLOOD SPECIMEN / Unknown Venipuncture / Unknown 03/17/2025 9:13 PM CDT 03/17/2025 9:19 PM CDT Vaibhav Stahl MD LAB - CHEMISTRY ORDERABLES Final Result Performing Organization Address [facility] Co de Phone Number [facility] [address] [place] [address] * Critical Care (03/17/2025 7:38 PM CDT) Narrative Vaibhav Stahl MD - 03/17/2025 7:38 PM CDT Vaibhav Stahl MD 03/17/2025 11:23 PM Critical Care Performed by: Vaibhav Stahl MD Authorized by: Vaibhav Stahl MD Critical care provider statement: Critical care time (minutes): 80 Critical care was necessary to treat or prevent imminent or life-threatening deterioration of the following conditions: Circulatory failure and renal failure Critical care was time spent personally by me on the following activities: Development of treatment plan with patient or surrogate, discussions with consultants, evaluation of patient's response to treatment, obtaining history from patient or surrogate, ordering and performing treatments and interventions, ordering and review of laboratory studies, ordering and review of radiographic studies, pulse oximetry, re-evaluation of patient's condition and review of old charts Vaibhav Stahl MD PROCEDURE/MINOR SURGICAL O RDERABLES Final Result * (ABNORMAL) TROPONIN-I HIGH SENSITIVE (03/15/2025 7:25 PM CDT) Only the most recent of2 resultswithin the time period is included. Troponin I High Sensitive 90(H) <=35 ng/L 03/15/2025 7:52 PM CDT [facility] Blood BLOOD SPECIMEN / Unknown Venipuncture / Unknown 03/15/2025 7:25 PM CDT 03/15/2025 7:28 PM CDT Gutierrez Saunders PA-C LAB - CHEMISTRY ORDERABLES Fi nal Result Performing Organization Address [facility] Co de Phone Number [facility] [address] [place] [address], [facility] [phone] * (ABNORMAL) B-TYPE NATRIURETIC PEPTIDE (03/15/2025 6:19 PM CDT) Pathologist [facility] BNP 735(H) <101 pg/mL 03/15/2025 8:04 PM CDT [facility] Blood BLOOD SPECIMEN / Unknown Venipuncture / Unknown 03/15/2025 6:19 PM CDT 03/15/2025 7:38 PM CDT Narrative [facility] - 03/15/2025 8:04 PM CDT >100 pg/mL is suggestive of congestive heart failure (CHF). Gutierrez Saunders PA-C LAB - CHEMISTRY ORDERABLES Fi nal Result Performing Organization Address City/[facility] Co de Phone Number [facility] [address] [place] [address], [facility] [phone] from Last 3 Months Insurance MEDICARE Care Teams Freezing Machine Operator Relationship Specialty Start Date End Date Pcp, None [address] [place] [address] PCP - General 03/15/25
--- OUTSIDE RECORDS SUMMARY | 2025-04-20 17:51 | XMS_ITS | Clinical Summary ---
Author Organization [facility] Address [address] [place] [address] Phone Care Team Providers Care Wall Scraper Name Role Phone Provider, None Primary Care Provider Unavailabl e Allergies Active Allergy Reactions Criticality Noted Date Comments Fish Allergy Unknown 09/06/2022 Medications sevelamer (RENAGEL) 800 MG Tablet Take 2,400 mg by mouth 3 times daily. Active FLUoxetine (PROZAC) 40 MG Capsule Take 40 mg by mouth daily. Active hydrOXYzine (ATARAX) 50 MG Tablet Take 50 mg by mouth every 6 hours as needed. Active traZODone (DESYREL) 100 MG Tablet Take 100 mg by mouth nightly. Active pantoprazole (PROTONIX) 40 MG Tablet Delayed Response Take 40 mg by mouth daily. Active dilTIAZem (CARDIZEM) 60 MG Tablet Take 60 mg by mouth 3 times daily. Active carvedilol (COREG) 25 MG Tablet Take 25 mg by mouth 2 times daily. Active apixaban (ELIQUIS) 5 MG Tablet Take 5 mg by mouth 2 times daily. Active Active Problems Problem Noted Date Diagnosed Date End stage renal disease 09/08/2022 Suicidal ideation 09/08/2022 Hypertension 09/08/2022 Depression 09/08/2022 Homelessness 09/08/2022 Morbid obesity 09/08/2022 Social History Tobacco Use Types Packs/Day Years Used Date Smoking Tobacco: Unknown Tobacco Cessation:Counseling Given: Not Answered Sex and Gender Information Value Date Recorded Sex Assigned at Not on file Legal Sex Male 5:15 PM CONSULTANT EDUCATION Gender Identity Not on file Sexual Orientation Not on file Last Filed Vital Signs Vital Sign Reading Time Taken Comments Blood Pressure 149/81 09/09/2022 12:15 PM CONSULTANT EDUCATION Pulse 68 09/09/2022 12:15 PM CONSULTANT EDUCATION Temperature 37 C (98.6 F) 09/09/2022 8:40 AM CONSULTANT EDUCATION Respiratory Rate 16 09/09/2022 12:15 PM CONSULTANT EDUCATION Oxygen Saturation 100% 09/09/2022 7:24 AM CONSULTANT EDUCATION Inhaled Oxygen Concentration - - Weight 136.1 kg (300 lb) 09/06/2022 5:39 PM CONSULTANT EDUCATION Height 177.8 cm (5' 10) 09/06/2022 5:39 PM CONSULTANT EDUCATION Body Mass Index 43.05 09/06/2022 5:39 PM CONSULTANT EDUCATION Plan of Treatment Not on file Advance Directives * Full Code (Latest Code Status on File) Date Activated Date Inactivated Comments 09/08/2022 3:18 PM 09/09/2022 4:50 PM CPR-Full Charlie atment: FULL ARREST: Attempt Resuscitation/CPR wit intubation and mechanical ventilation. PRE-ARREST: Use entire range of life support measures to stabilize the patient. Care Teams Wall Scraper Relationship Specialty Start Date End Date Provider, None [place] PCP - General 09/06/22
--- OUTSIDE RECORDS SUMMARY | 2025-04-20 17:51 | XMS_ITS | Clinical Summary ---
Author Organization [facility] Address [address] [place], [place] [id number] Care Team Providers Care Roentgenology Teacher Name Role Phone Unavailable Primary Care Provider Unavailabl e Social History Tobacco Use Types Packs/Day Years Used Date Smoking Tobacco: Never Assessed Sex and Gender Information Value Date Recorded Sex Assigned at Not on file Legal Sex Male 8:10 PM CDT Gender Identity Not on file Sexual Orientation Not on file Plan of Treatment Health Maintenance Due Date Last Done Comments Annual Physical 1988 Hepatitis C 2003 DTaP, Tdap and Td Vaccines ( 1 - Tdap) 2004 Hepatitis B Vaccines (1 of 3 - 19+ 3-dose series) 2004 HPV Vaccines (1 - 3-dose SCD M series) 2012 COVID-19 Vaccine (2023-2 5 season) 2025 Meningococcal B Vaccine Aged Out No l onger eligible based on patient's age to complete this topic Meningococcal Vaccine Aged Out No lyndsey cassidy eligible based on patient's age to complete this topic Pneumococcal Vaccine: Pediat rics (0 to 5 Years) and At-Risk Patients (6 to 49 Years) Aged Out No longer eligible b ased on patient's age to complete this topic RSV Immunizations Under 20 Months Aged Out No longer eligible based on patient's age to complete this topic
--- OUTSIDE RECORDS SUMMARY | 2025-04-20 17:51 | XMS_ITS | Encounter Summary ---
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
--- OUTSIDE RECORDS SUMMARY | 2025-04-20 17:51 | XMS_ITS | Clinical Summary ---
Author Organization [facility] Address [address] [place], [place] [id number] Phone Care Team Providers Care Filing And Polishing Supervisor Name Role Phone Unavailable Primary Care Provider Unavailabl e Medications sevelamer carbonate (RENVELA) 800 MG tablet Take 4 tablets (3,200 mg total) by mouth in the morning and 4 tablets (3,200 mg total) at noon and 4 tablets (3,200 mg total) in the evening. Take with meals. Swallow tablet whole; do not crush, break, or chew.. 1080 tablet 3 08/18/2024 Active Active Problems Problem Noted Date Diagnosed Date End stage renal disease due to hypertension 06/26 Hyperkalemia 11/01/2023 Overview (07/06/2024): Last Assessment & Plan: resoolved Gastro-esophageal reflux disease without esophag itis 11/01/2023 Overview (07/06/2024): Last Assessment & Plan: - no acute issues Type 2 diabetes mellitus with diabetic neuropath y 10/23/2023 Permanent atrial fibrillation 10/23/2023 Patient's noncompliance with renal dialysis due to financial hardship 10/23/2023 Hyperparathyroidism 10/23/2023 End stage renal disease on d ialysis due to type 2 diabetes mellitus 10/23/2023 Hypervolemia 08/01/2023 Hyperphosphatemia 01/28/2023 Chronic diastolic congestive heart failure 01/28 Severe recurrent major depre ssion without psychotic features 09/11/2022 Dilated cardiomyopathy 09/11/2022 Adjustment disorder 08/18/2022 Generalized anxiety disorder 08/01/2022 End stage renal failure on dialysis 06/26/2022 Overview (07/06/2024): Last Assessment & Plan: Resuming Dialysis locally Thursday, f/u Nephro Secondary hyperparathyroidism of renal origin Anemia of chronic renal failure 06/02/2022 Resolved Problems Problem Noted Date Diagnosed Date Resolved Date Injury of head 08/04/2023 07/06/2024 Homelessness 09/08/2022 07/06/2024 Suicidal ideation 08/18/2022 07/06/2024 History of acute kidney injury 12/01/2017 07/06/2024 Social History Tobacco Use Types Packs/Day Years Used Date Smoking Tobacco: Never Alcohol Use Standard Drinks/Week Comments No 0 (1 standard drink = 0.6 oz pur e alcohol) Sex and Gender Information Value Date Recorded Sex Assigned at Not on file Legal Sex Male 8:28 PM EST Gender Identity Not on file Sexual Orientation Not on file Last Filed Vital Signs Vital Sign Reading Time Taken Comments Blood Pressure 95/53 02/04/2018 12:00 PM EDT Pulse 67 02/04/2018 12:00 PM EDT Temperature - - Respiratory Rate - - Oxygen Saturation - - Inhaled Oxygen Concentration - - Weight 114 kg (251 lb 8 oz) 02/04/2018 12:00 PM EDT Height 175.3 cm (5' 9) 02/04/2018 12:00 PM EDT Body Mass Index 37.14 02/04/2018 12:00 PM EDT Plan of Treatment Health Maintenance Due Date Last Done Comments Pneumococcal Vaccine: Peds ( 0 to 5 Years) and At-Risk Patients (6 to 49 Years) (1 of 2 - PCV) 2004 Diabetes: Ophthalmology Exam 11/17/2023 Diabetes: Pedal Pulse Checked 11/17/2023 Diabetes: Sensory Foot Exam 11/17/2023 Diabetes: Visual Foot Exam 11/17/2023 Influenza Vaccine (#1) 2025 03/31/2017, 2016 Diabetes: Hemoglobin A1C 05/21/2025 025, 08/21/2024, 05/07/2024, Additional history exists Hepatitis B Vaccine Completed 06/13/1998, 12/07/1997, 12/07/1997, Additional history exists Insurance [place] Medicare [place] [id number]
--- OUTSIDE RECORDS SUMMARY | 2025-04-20 17:51 | XMS_ITS ---
Author Organization [facility] Ledya hutchison ([facility]) Address [address] [place] [id number] Care Team Providers Care Watch Assembler Name Role Phone Unavailable Unavailable Unavailable Allergies, Adverse Reactions, Alerts Allergy Name Allergy Type Status Severity Reaction(s) Onset Date Inactive Date Treating Clinician Comments Fish-derive d Products Allergy Active Unknown 2024-09 01:47:5 2 Problems This patient has no known problems. Procedures Procedure Date / Time Performed Performing Clinician Noemi ce Details Central Venous Catheter (CVC) 2022-06-04 05:00:00 Access Site Chest (Right) DIALYSIS TREATMENT INFORMATION Conventional Hemodialysis Date Type Treatment Start Date Treatment End Date Pre-Treatment Vitals Post-Treatment Vitals Weight Gain BFR DFR Actual UF Dialysis Access October 21, 2024 In-Ce nter Hemod ialys is Treat ment 2024-10-21 T09:31:34. 000Z 2024-10-21 T13:40:34. 000Z BP Sitting (Pre-Dialysis) 146/76 mmHg BP Sitting (Post-D ialysis ) 114/ 59 mmHg BP Standing (Pre-Dialysis) 123/70 mmHg BP Standing (P ost-Dialysis) 131/62 mmHg Sitting Heart Rate Pre-Dialysis 67 BPM Sitting Heart Rate Post-Dialysis 75 BPM Standing Heart Rate Pre-Dialysis 82 BPM Standing Heart Rate Post-Dialysis 65 BPM Temperature Pre-Dialysis 97.2 degF Temperature Post -Dialysis 97.9 degF Results Adequacy Description Draw Date Result/Unit Status Ref Range Result Comments stdKT/V Total 2024-10-22 21:24:00 N/A F VT (KT/V TX VOL) 2024-10-22 21:24:00 51.2 L F KT/V PRESCRIBED 2024-10-22 21:24:00 1.39 F PATIENT AGE 2024-10-22 21:24:00 39 Years F LENGTH OF DIALYSIS 2024-10-22 21:24:00 248 min F VM (KT/V MEAN VOL) 2024-10-22 21:24:00 51.2 F stdKt/V (DIAL) 2024-10-22 21:24:00 N/A F PRESCRIBED DAYS/WEEK 2024-10-22 21:24:00 3 Day/Wk F WEIGHT - PRE DAY 1 2024-10-22 21:24:00 124.2 kg F TOTAL HOURS/WEEK DIALYSIS 2024-10-22 21:24:00 4 hrs F spKt/V 2024-10-22 21:24:00 1.35 F TBW ([place]) 2024-10-22 21:24:00 58.78 Liters F eKt/V 2024-10-22 21:24:00 1.18 F HEIGHT IN INCHES 2024-10-22 21:24:00 70 Inches F CURRENT KRU 2024-10-22 21:24:00 F WEIGHT - POST DAY 1 2024-10-22 21:24:00 121.8 kg F Total Kt/V 2024-10-22 21:24:00 1.35 F BSA KIMBERLY 2024-10-22 21:24:00 2.39 sq m F WEIGHT - PRE DAY 1 2024-10-22 21:24:00 124.2 kg F Residual kt/v 2024-10-22 21:24:00 F AMPUTATE FACTOR 2024-10-22 21:24:00 0 F Std Renal KT/V 2024-10-22 21:24:00 N/A F URR% 2024-10-22 21:24:00 71 % F VT (KT/V TX VOL) 2024-10-22 21:24:00 51.2 L F WEIGHT (KG) 2024-10-22 21:24:00 125 kg F DIALYZER FLOW-QD 2024-10-22 21:24:00 600 mL/min F nPCR 2024-10-22 21:24:00 0.45 G/KG/D F Residual kt/v 2024-10-22 21:24:00 F BLOOD FLOW-QWB 2024-10-22 21:24:00 400 F Std Renal KT/V 2024-10-22 21:24:00 N/A F KT/V PRESCRIBED 2024-10-22 21:24:00 1.39 F KT/V PRESCRIBED 2024-10-22 21:24:00 1.39 F stdKT/V Total 2024-10-22 21:24:00 N/A F Dialyzer COSME 2024-10-22 21:24:00 1218 Calc F WEIGHT (KG) 2024-10-22 21:24:00 125 kg F LENGTH OF DIALYSIS 2024-10-22 21:24:00 248 min F AMPUTATE FACTOR 2024-10-22 21:24:00 0 F DIALYZER FLOW-QD 2024-10-22 21:24:00 600 mL/min F nPCR 2024-10-22 21:24:00 0.45 G/KG/D F PATIENT AGE 2024-10-22 21:24:00 39 Years F stdKT/V Total 2024-10-22 21:24:00 N/A F eKt/V 2024-10-22 21:24:00 1.18 F LENGTH OF DIALYSIS 2024-10-22 21:24:00 248 min F PATIENT AGE 2024-10-22 21:24:00 39 Years F TBW ([place]) 2024-10-22 21:24:00 58.78 Liters F WEIGHT - POST DAY 1 2024-10-22 21:24:00 121.8 kg F PRESCRIBED DAYS/WEEK 2024-10-22 21:24:00 3 Day/Wk F HEIGHT IN INCHES 2024-10-22 21:24:00 70 Inches F BSA KIMBERLY 2024-10-22 21:24:00 2.39 sq m F CURRENT KRU 2024-10-22 21:24:00 F TOTAL HOURS/WEEK DIALYSIS 2024-10-22 21:24:00 4 hrs F eKt/V 2024-10-22 21:24:00 1.18 F spKt/V 2024-10-22 21:24:00 1.35 F stdKt/V (DIAL) 2024-10-22 21:24:00 N/A F VM (KT/V MEAN VOL) 2024-10-22 21:24:00 51.2 F BSA KIMBERLY 2024-10-22 21:24:00 2.39 sq m F Total Kt/V 2024-10-22 21:24:00 1.35 F VT (KT/V TX VOL) 2024-10-22 21:24:00 51.2 L F KT/V PRESCRIBED 2024-10-22 21:24:00 1.39 F BLOOD FLOW-QWB 2024-10-22 21:24:00 400 F stdKT/V Total 2024-10-22 21:24:00 N/A F WEIGHT - PRE DAY 1 2024-10-22 21:24:00 124.2 kg F DIALYZER FLOW-QD 2024-10-22 21:24:00 600 mL/min F AMPUTATE FACTOR 2024-10-22 21:24:00 0 F WEIGHT (KG) 2024-10-22 21:24:00 125 kg F Std Renal KT/V 2024-10-22 21:24:00 N/A F nPCR 2024-10-22 21:24:00 0.45 G/KG/D F URR% 2024-10-22 21:24:00 71 % F URR% 2024-10-22 21:24:00 71 % F Residual kt/v 2024-10-22 21:24:00 F Dialyzer COSME 2024-10-22 21:24:00 1218 Calc F Dialyzer COSME 2024-10-22 21:24:00 1218 Calc F Std Renal KT/V 2024-10-22 21:24:00 N/A F PATIENT AGE 2024-10-22 21:24:00 39 Years F LENGTH OF DIALYSIS 2024-10-22 21:24:00 248 min F stdKt/V (DIAL) 2024-10-22 21:24:00 N/A F VM (KT/V MEAN VOL) 2024-10-22 21:24:00 51.2 F Total Kt/V 2024-10-22 21:24:00 1.35 F WEIGHT - POST DAY 1 2024-10-22 21:24:00 121.8 kg F nPCR 2024-10-22 21:24:00 0.45 G/KG/D F spKt/V 2024-10-22 21:24:00 1.35 F TBW ([place]don) 2024-10-22 21:24:00 58.78 Liters F eKt/V 2024-10-22 21:24:00 1.18 F PRESCRIBED DAYS/WEEK 2024-10-22 21:24:00 3 Day/Wk F TOTAL HOURS/WEEK DIALYSIS 2024-10-22 21:24:00 4 hrs F CURRENT KRU 2024-10-22 21:24:00 F BSA KIMBERLY 2024-10-22 21:24:00 2.39 sq m F HEIGHT IN INCHES 2024-10-22 21:24:00 70 Inches F Residual kt/v 2024-10-22 21:24:00 F nPCR 2024-10-22 21:24:00 0.45 G/KG/D F URR% 2024-10-22 21:24:00 71 % F WEIGHT - PRE DAY 1 2024-10-22 21:24:00 124.2 kg F DIALYZER FLOW-QD 2024-10-22 21:24:00 600 mL/min F WEIGHT (KG) 2024-10-22 21:24:00 125 kg F Std Renal KT/V 2024-10-22 21:24:00 N/A F stdKT/V Total 2024-10-22 21:24:00 N/A F KT/V PRESCRIBED 2024-10-22 21:24:00 1.39 F BLOOD FLOW-QWB 2024-10-22 21:24:00 400 F AMPUTATE FACTOR 2024-10-22 21:24:00 0 F VT (KT/V TX VOL) 2024-10-22 21:24:00 51.2 L F Residual kt/v 2024-10-22 21:24:00 F URR% 2024-10-22 21:24:00 71 % F Dialyzer COSME 2024-10-22 21:24:00 1218 Calc F CURRENT KRU 2024-10-22 21:24:00 F URR% 2024-10-22 21:24:00 71 % F DIALYZER FLOW-QD 2024-10-22 21:24:00 600 mL/min F Dialyzer COSME 2024-10-22 21:24:00 1218 Calc F LENGTH OF DIALYSIS 2024-10-22 21:24:00 248 min F PATIENT AGE 2024-10-22 21:24:00 39 Years F BSA KIMBERLY 2024-10-22 21:24:00 2.39 sq m F WEIGHT - POST DAY 1 2024-10-22 21:24:00 121.8 kg F WEIGHT - PRE DAY 1 2024-10-22 21:24:00 124.2 kg F HEIGHT IN INCHES 2024-10-22 21:24:00 70 Inches F WEIGHT (KG) 2024-10-22 21:24:00 125 kg F VT (KT/V TX VOL) 2024-10-22 21:24:00 51.2 L F PRESCRIBED DAYS/WEEK 2024-10-22 21:24:00 3 Day/Wk F VM (KT/V MEAN VOL) 2024-10-22 21:24:00 51.2 F Residual kt/v 2024-10-22 21:24:00 F KT/V PRESCRIBED 2024-10-22 21:24:00 1.39 F Total Kt/V 2024-10-22 21:24:00 1.35 F nPCR 2024-10-22 21:24:00 0.45 G/KG/D F AMPUTATE FACTOR 2024-10-22 21:24:00 0 F TBW (Ardon) 2024-10-22 21:24:00 58.78 Liters F spKt/V 2024-10-22 21:24:00 1.35 F stdKt/V (DIAL) 2024-10-22 21:24:00 N/A F eKt/V 2024-10-22 21:24:00 1.18 F Std Renal KT/V 2024-10-22 21:24:00 N/A F stdKT/V Total 2024-10-22 21:24:00 N/A F TOTAL HOURS/WEEK DIALYSIS 2024-10-22 21:24:00 4 hrs F BLOOD FLOW-QWB 2024-10-22 21:24:00 400 F PRESCRIBED DAYS/WEEK 2024-10-22 21:24:00 3 Day/Wk F stdKt/V (DIAL) 2024-10-22 21:24:00 N/A F CURRENT KRU 2024-10-22 21:24:00 F WEIGHT - POST DAY 1 2024-10-22 21:24:00 121.8 kg F HEIGHT IN INCHES 2024-10-22 21:24:00 70 Inches F VM (KT/V MEAN VOL) 2024-10-22 21:24:00 51.2 F Total Kt/V 2024-10-22 21:24:00 1.35 F TBW ([place]) 2024-10-22 21:24:00 58.78 Liters F WEIGHT (KG) 2024-10-22 21:24:00 125 kg F Dialyzer COSME 2024-10-22 21:24:00 1218 Calc F WEIGHT - PRE DAY 1 2024-10-22 21:24:00 124.2 kg F spKt/V 2024-10-22 21:24:00 1.35 F TOTAL HOURS/WEEK DIALYSIS 2024-10-22 21:24:00 4 hrs F LENGTH OF DIALYSIS 2024-10-22 21:24:00 248 min F PRESCRIBED DAYS/WEEK 2024-10-22 21:24:00 3 Day/Wk F PATIENT AGE 2024-10-22 21:24:00 39 Years F spKt/V 2024-10-22 21:24:00 1.35 F Total Kt/V 2024-10-22 21:24:00 1.35 F TBW (Ardon) 2024-10-22 21:24:00 58.78 Liters F WEIGHT - POST DAY 1 2024-10-22 21:24:00 121.8 kg F HEIGHT IN INCHES 2024-10-22 21:24:00 70 Inches F VM (KT/V MEAN VOL) 2024-10-22 21:24:00 51.2 F CURRENT KRU 2024-10-22 21:24:00 F eKt/V 2024-10-22 21:24:00 1.18 F BSA KIMBERLY 2024-10-22 21:24:00 2.39 sq m F TOTAL HOURS/WEEK DIALYSIS 2024-10-22 21:24:00 4 hrs F stdKt/V (DIAL) 2024-10-22 21:24:00 N/A F BLOOD FLOW-QWB 2024-10-22 21:24:00 400 F DIALYZER FLOW-QD 2024-10-22 21:24:00 600 mL/min F BLOOD FLOW-QWB 2024-10-22 21:24:00 400 F LENGTH OF DIALYSIS 2024-10-22 21:24:00 248 min F PATIENT AGE 2024-10-22 21:24:00 39 Years F TBW (Ardon) 2024-10-22 21:24:00 58.78 Liters F eKt/V 2024-10-22 21:24:00 1.18 F CURRENT KRU 2024-10-22 21:24:00 F VM (KT/V MEAN VOL) 2024-10-22 21:24:00 51.2 F stdKt/V (DIAL) 2024-10-22 21:24:00 N/A F Total Kt/V 2024-10-22 21:24:00 1.35 F spKt/V 2024-10-22 21:24:00 1.35 F TOTAL HOURS/WEEK DIALYSIS 2024-10-22 21:24:00 4 hrs F HEIGHT IN INCHES 2024-10-22 21:24:00 70 Inches F WEIGHT - POST DAY 1 2024-10-22 21:24:00 121.8 kg F PRESCRIBED DAYS/WEEK 2024-10-22 21:24:00 3 Day/Wk F BSA KIMBERLY 2024-10-22 21:24:00 2.39 sq m F Std Renal KT/V 2024-10-22 21:24:00 N/A F VT (KT/V TX VOL) 2024-10-22 21:24:00 51.2 L F VT (KT/V TX VOL) 2024-10-22 21:24:00 51.2 L F WEIGHT - PRE DAY 1 2024-10-22 21:24:00 124.2 kg F nPCR 2024-10-22 21:24:00 0.45 G/KG/D F KT/V PRESCRIBED 2024-10-22 21:24:00 1.39 F URR% 2024-10-22 21:24:00 71 % F AMPUTATE FACTOR 2024-10-22 21:24:00 0 F WEIGHT (KG) 2024-10-22 21:24:00 125 kg F stdKT/V Total 2024-10-22 21:24:00 N/A F Residual kt/v 2024-10-22 21:24:00 F BLOOD FLOW-QWB 2024-10-22 21:24:00 400 F AMPUTATE FACTOR 2024-10-22 21:24:00 0 F Dialyzer COSME 2024-10-22 21:24:00 1218 Calc F DIALYZER FLOW-QD 2024-10-22 21:24:00 600 mL/min F Urea nitrogen [Mass/volume] in Serum or Plasma --post dialysis 2024-10-22 21:22:15 18 mg/dL F 9.0-23.0 Urea nitrogen [Mass/volume] in Serum or Plasma --post dialysis 2024-10-22 21:22:15 18 mg/dL F 9.0-23.0 Urea nitrogen [Mass/volume] in Serum or Plasma --post dialysis 2024-10-22 21:22:15 18 mg/dL F 9.0-23.0 Urea nitrogen [Mass/volume] in Serum or Plasma --post dialysis 2024-10-22 21:22:15 18 mg/dL F 9.0-23.0 Urea nitrogen [Mass/volume] in Serum or Plasma --post dialysis 2024-10-22 21:22:15 18 mg/dL F 9.0-23.0 Urea nitrogen [Mass/volume] in Serum or Plasma --post dialysis 2024-10-22 21:22:15 18 mg/dL F 9.0-23.0 Urea nitrogen [Mass/volume] in Serum or Plasma --post dialysis 2024-10-22 21:22:15 18 mg/dL F 9.0-23.0 Creatinine [Mass/volume] in Serum or Plasma 2024-10-22 20:14:17 11.06 mg/dL F 0.7-1.3 Urea nitrogen [Mass/volume] in Serum or Plasma 2024-10-22 20:14:17 62 mg/dL F 9.0-23.0 Creatinine [Mass/volume] in Serum or Plasma 2024-10-22 20:14:17 11.06 mg/dL F 0.7-1.3 Creatinine [Mass/volume] in Serum or Plasma 2024-10-22 20:14:17 11.06 mg/dL F 0.7-1.3 Urea nitrogen [Mass/volume] in Serum or Plasma 2024-10-22 20:14:17 62 mg/dL F 9.0-23.0 Creatinine [Mass/volume] in Serum or Plasma 2024-10-22 20:14:17 11.06 mg/dL F 0.7-1.3 Urea nitrogen [Mass/volume] in Serum or Plasma 2024-10-22 20:14:17 62 mg/dL F 9.0-23.0 Creatinine [Mass/volume] in Serum or Plasma 2024-10-22 20:14:17 11.06 mg/dL F 0.7-1.3 Urea nitrogen [Mass/volume] in Serum or Plasma 2024-10-22 20:14:17 62 mg/dL F 9.0-23.0 Urea nitrogen [Mass/volume] in Serum or Plasma 2024-10-22 20:14:17 62 mg/dL F 9.0-23.0 Creatinine [Mass/volume] in Serum or Plasma 2024-10-22 20:14:17 11.06 mg/dL F 0.7-1.3 Creatinine [Mass/volume] in Serum or Plasma 2024-10-22 20:14:17 11.06 mg/dL F 0.7-1.3 Urea nitrogen [Mass/volume] in Serum or Plasma 2024-10-22 20:14:17 62 mg/dL F 9.0-23.0 Urea nitrogen [Mass/volume] in Serum or Plasma 2024-10-22 20:14:17 62 mg/dL F 9.0-23.0 Anemia Description Draw Date Result/Unit Status Ref Range Result Comments HCT CALC HGBX3 2024-10-22 22:15:02 26.4 % F 42.0-52.0 HCT CALC HGBX3 2024-10-22 22:15:02 26.4 % F 42.0-52.0 HCT CALC HGBX3 2024-10-22 22:15:02 26.4 % F 42.0-52.0 HCT CALC HGBX3 2024-10-22 22:15:02 26.4 % F 42.0-52.0 HCT CALC HGBX3 2024-10-22 22:15:02 26.4 % F 42.0-52.0 HCT CALC HGBX3 2024-10-22 22:15:02 26.4 % F 42.0-52.0 HCT CALC HGBX3 2024-10-22 22:15:02 26.4 % F 42.0-52.0 Erythrocyte distribution width [Ratio] by Automated count 2024-10-22 22:14:10 14.9 % F 11.0-15.0 Hematocrit [Volume Fraction] of Blood by Automated count 2024-10-22 22:14:10 27.4 % F 41.0-53.0 Hemoglobin [Mass/volume] in Blood 2024-10-22 22:14:10 8.8 g/dL F 14.0-18.0 Platelets [#/volume] in Blood by Automated count 2024-10-22 22:14:10 301 x 10^3 cells/uL F 140.0-450.0 MCH [Entitic mass] by Automated count 2024-10-22 22:14:10 29.5 pg F 25.9-34.2 MCHC [Mass/volume] by Automated count 2024-10-22 22:14:10 32.2 g/dL F 29.6-35.3 Erythrocytes [#/volume] in Blood by Automated count 2024-10-22 22:14:10 3 x 10^6 cells/uL F 4.6-6.2 Hematocrit [Volume Fraction] of Blood by Automated count 2024-10-22 22:14:10 27.4 % F 41.0-53.0 MCV [Entitic volume] by Automated count 2024-10-22 22:14:10 91.4 fL F 80.0-100.0 Platelets [#/volume] in Blood by Automated count 2024-10-22 22:14:10 301 x 10^3 cells/uL F 140.0-450.0 Erythrocyte distribution width [Ratio] by Automated count 2024-10-22 22:14:10 14.9 % F 11.0-15.0 Hemoglobin [Mass/volume] in Blood 2024-10-22 22:14:10 8.8 g/dL F 14.0-18.0 Platelets [#/volume] in Blood by Automated count 2024-10-22 22:14:10 301 x 10^3 cells/uL F 140.0-450.0 MCH [Entitic mass] by Automated count 2024-10-22 22:14:10 29.5 pg F 25.9-34.2 MCHC [Mass/volume] by Automated count 2024-10-22 22:14:10 32.2 g/dL F 29.6-35.3 Erythrocytes [#/volume] in Blood by Automated count 2024-10-22 22:14:10 3 x 10^6 cells/uL F 4.6-6.2 Hematocrit [Volume Fraction] of Blood by Automated count 2024-10-22 22:14:10 27.4 % F 41.0-53.0 MCV [Entitic volume] by Automated count 2024-10-22 22:14:10 91.4 fL F 80.0-100.0 Erythrocyte distribution width [Ratio] by Automated count 2024-10-22 22:14:10 14.9 % F 11.0-15.0 Hemoglobin [Mass/volume] in Blood 2024-10-22 22:14:10 8.8 g/dL F 14.0-18.0 Platelets [#/volume] in Blood by Automated count 2024-10-22 22:14:10 301 x 10^3 cells/uL F 140.0-450.0 MCH [Entitic mass] by Automated count 2024-10-22 22:14:10 29.5 pg F 25.9-34.2 MCHC [Mass/volume] by Automated count 2024-10-22 22:14:10 32.2 g/dL F 29.6-35.3 Erythrocytes [#/volume] in Blood by Automated count 2024-10-22 22:14:10 3 x 10^6 cells/uL F 4.6-6.2 Hematocrit [Volume Fraction] of Blood by Automated count 2024-10-22 22:14:10 27.4 % F 41.0-53.0 MCV [Entitic volume] by Automated count 2024-10-22 22:14:10 91.4 fL F 80.0-100.0 Erythrocyte distribution width [Ratio] by Automated count 2024-10-22 22:14:10 14.9 % F 11.0-15.0 Hemoglobin [Mass/volume] in Blood 2024-10-22 22:14:10 8.8 g/dL F 14.0-18.0 Hemoglobin [Mass/volume] in Blood 2024-10-22 22:14:10 8.8 g/dL F 14.0-18.0 Platelets [#/volume] in Blood by Automated count 2024-10-22 22:14:10 301 x 10^3 cells/uL F 140.0-450.0 MCH [Entitic mass] by Automated count 2024-10-22 22:14:10 29.5 pg F 25.9-34.2 MCHC [Mass/volume] by Automated count 2024-10-22 22:14:10 32.2 g/dL F 29.6-35.3 MCHC [Mass/volume] by Automated count 2024-10-22 22:14:10 32.2 g/dL F 29.6-35.3 Erythrocytes [#/volume] in Blood by Automated count 2024-10-22 22:14:10 3 x 10^6 cells/uL F 4.6-6.2 Hematocrit [Volume Fraction] of Blood by Automated count 2024-10-22 22:14:10 27.4 % F 41.0-53.0 MCV [Entitic volume] by Automated count 2024-10-22 22:14:10 91.4 fL F 80.0-100.0 Erythrocyte distribution width [Ratio] by Automated count 2024-10-22 22:14:10 14.9 % F 11.0-15.0 Erythrocytes [#/volume] in Blood by Automated count 2024-10-22 22:14:10 3 x 10^6 cells/uL F 4.6-6.2 Hematocrit [Volume Fraction] of Blood by Automated count 2024-10-22 22:14:10 27.4 % F 41.0-53.0 Hemoglobin [Mass/volume] in Blood 2024-10-22 22:14:10 8.8 g/dL F 14.0-18.0 MCV [Entitic volume] by Automated count 2024-10-22 22:14:10 91.4 fL F 80.0-100.0 MCH [Entitic mass] by Automated count 2024-10-22 22:14:10 29.5 pg F 25.9-34.2 Platelets [#/volume] in Blood by Automated count 2024-10-22 22:14:10 301 x 10^3 cells/uL F 140.0-450.0 Erythrocyte distribution width [Ratio] by Automated count 2024-10-22 22:14:10 14.9 % F 11.0-15.0 MCHC [Mass/volume] by Automated count 2024-10-22 22:14:10 32.2 g/dL F 29.6-35.3 Erythrocyte distribution width [Ratio] by Automated count 2024-10-22 22:14:10 14.9 % F 11.0-15.0 Erythrocytes [#/volume] in Blood by Automated count 2024-10-22 22:14:10 3 x 10^6 cells/uL F 4.6-6.2 MCV [Entitic volume] by Automated count 2024-10-22 22:14:10 91.4 fL F 80.0-100.0 MCH [Entitic mass] by Automated count 2024-10-22 22:14:10 29.5 pg F 25.9-34.2 Hemoglobin [Mass/volume] in Blood 2024-10-22 22:14:10 8.8 g/dL F 14.0-18.0 Platelets [#/volume] in Blood by Automated count 2024-10-22 22:14:10 301 x 10^3 cells/uL F 140.0-450.0 MCH [Entitic mass] by Automated count 2024-10-22 22:14:10 29.5 pg F 25.9-34.2 MCHC [Mass/volume] by Automated count 2024-10-22 22:14:10 32.2 g/dL F 29.6-35.3 Erythrocytes [#/volume] in Blood by Automated count 2024-10-22 22:14:10 3 x 10^6 cells/uL F 4.6-6.2 Hematocrit [Volume Fraction] of Blood by Automated count 2024-10-22 22:14:10 27.4 % F 41.0-53.0 MCV [Entitic volume] by Automated count 2024-10-22 22:14:10 91.4 fL F 80.0-100.0 FluidBP Description Draw Date Result/Unit Status Ref Range Result Comments Sodium [Moles/volume] in Serum or Plasma 2024-10-23 05:02:34 134 mEq/L F 132.0-146.0 Sodium [Moles/volume] in Serum or Plasma 2024-10-23 05:02:34 134 mEq/L F 132.0-146.0 Sodium [Moles/volume] in Serum or Plasma 2024-10-23 05:02:34 134 mEq/L F 132.0-146.0 Sodium [Moles/volume] in Serum or Plasma 2024-10-23 05:02:34 134 mEq/L F 132.0-146.0 Sodium [Moles/volume] in Serum or Plasma 2024-10-23 05:02:34 134 mEq/L F 132.0-146.0 Sodium [Moles/volume] in Serum or Plasma 2024-10-23 05:02:34 134 mEq/L F 132.0-146.0 Sodium [Moles/volume] in Serum or Plasma 2024-10-23 05:02:34 134 mEq/L F 132.0-146.0 General Description Draw Date Result/Unit Status Ref Range Result Comments Aluminum [Mass/volume] in Serum or Plasma 2024-10-25 14:38:01 10 ug/L F 0.0-9.0 Aluminum [Mass/volume] in Serum or Plasma 2024-10-25 14:38:01 10 ug/L F 0.0-9.0 Aluminum [Mass/volume] in Serum or Plasma 2024-10-25 14:38:01 10 ug/L F 0.0-9.0 Aluminum [Mass/volume] in Serum or Plasma 2024-10-25 14:38:01 10 ug/L F 0.0-9.0 Aluminum [Mass/volume] in Serum or Plasma 2024-10-25 14:38:01 10 ug/L F 0.0-9.0 Aluminum [Mass/volume] in Serum or Plasma 2024-10-25 14:38:01 10 ug/L F 0.0-9.0 Aluminum [Mass/volume] in Serum or Plasma 2024-10-25 14:38:01 10 ug/L F 0.0-9.0 Chloride [Moles/volume] in Serum or Plasma 2024-10-23 05:02:34 95 mEq/L F 99.0-109.0 Chloride [Moles/volume] in Serum or Plasma 2024-10-23 05:02:34 95 mEq/L F 99.0-109.0 Chloride [Moles/volume] in Serum or Plasma 2024-10-23 05:02:34 95 mEq/L F 99.0-109.0 Chloride [Moles/volume] in Serum or Plasma 2024-10-23 05:02:34 95 mEq/L F 99.0-109.0 Chloride [Moles/volume] in Serum or Plasma 2024-10-23 05:02:34 95 mEq/L F 99.0-109.0 Chloride [Moles/volume] in Serum or Plasma 2024-10-23 05:02:34 95 mEq/L F 99.0-109.0 Chloride [Moles/volume] in Serum or Plasma 2024-10-23 05:02:34 95 mEq/L F 99.0-109.0 Aspartate aminotransferase [Enzymatic activity/volume] in Serum or Plasma 2024-10-22 20:14:17 9 U/L F 0.0-33.0 Aspartate aminotransferase [Enzymatic activity/volume] in Serum or Plasma 2024-10-22 20:14:17 9 U/L F 0.0-33.0 Aspartate aminotransferase [Enzymatic activity/volume] in Serum or Plasma 2024-10-22 20:14:17 9 U/L F 0.0-33.0 Aspartate aminotransferase [Enzymatic activity/volume] in Serum or Plasma 2024-10-22 20:14:17 9 U/L F 0.0-33.0 Aspartate aminotransferase [Enzymatic activity/volume] in Serum or Plasma 2024-10-22 20:14:17 9 U/L F 0.0-33.0 Aspartate aminotransferase [Enzymatic activity/volume] in Serum or Plasma 2024-10-22 20:14:17 9 U/L F 0.0-33.0 Aspartate aminotransferase [Enzymatic activity/volume] in Serum or Plasma 2024-10-22 20:14:17 9 U/L F 0.0-33.0 InfectionVaccination Description Draw Date Result/Unit Status Ref Range Result Comments Monocytes [#/volume] in Blood by Automated count 2024-10-22 22:14:10 477 Cells/uL F 0.0-1100.0 Basophils [#/volume] in Blood by Automated count 2024-10-22 22:14:10 14 Cells/uL F 0.0-400.0 Eosinophils [#/volume] in Blood by Automated count 2024-10-22 22:14:10 463 Cells/uL F 0.0-700.0 Neutrophils [#/volume] in Blood by Automated count 2024-10-22 22:14:10 4407 Cells/uL F 2000.0-8800.0 Leukocytes [#/volume] in Blood by Automated count 2024-10-22 22:14:10 7.1 x 10^3 cells/uL F 4.0-11.0 Lymphocytes [#/volume] in Blood by Automated count 2024-10-22 22:14:10 1752 Cells/uL F 620.0-3660.0 Basophils/100 leukocytes in Blood by Automated count 2024-10-22 22:14:10 0.2 % F Neutrophils/100 leukocytes in Blood by Automated count 2024-10-22 22:14:10 61.9 % F Lymphocytes/100 leukocytes in Blood by Automated count 2024-10-22 22:14:10 24.6 % F Monocytes/100 leukocytes in Blood by Automated count 2024-10-22 22:14:10 6.7 % F Eosinophils/100 leukocytes in Blood by Automated count 2024-10-22 22:14:10 6.5 % F Monocytes [#/volume] in Blood by Automated count 2024-10-22 22:14:10 477 Cells/uL F 0.0-1100.0 Basophils [#/volume] in Blood by Automated count 2024-10-22 22:14:10 14 Cells/uL F 0.0-400.0 Eosinophils [#/volume] in Blood by Automated count 2024-10-22 22:14:10 463 Cells/uL F 0.0-700.0 Neutrophils [#/volume] in Blood by Automated count 2024-10-22 22:14:10 4407 Cells/uL F 2000.0-8800.0 Leukocytes [#/volume] in Blood by Automated count 2024-10-22 22:14:10 7.1 x 10^3 cells/uL F 4.0-11.0 Lymphocytes [#/volume] in Blood by Automated count 2024-10-22 22:14:10 1752 Cells/uL F 620.0-3660.0 Neutrophils [#/volume] in Blood by Automated count 2024-10-22 22:14:10 4407 Cells/uL F 2000.0-8800.0 Lymphocytes/100 leukocytes in Blood by Automated count 2024-10-22 22:14:10 24.6 % F Basophils/100 leukocytes in Blood by Automated count 2024-10-22 22:14:10 0.2 % F Eosinophils/100 leukocytes in Blood by Automated count 2024-10-22 22:14:10 6.5 % F Lymphocytes/100 leukocytes in Blood by Automated count 2024-10-22 22:14:10 24.6 % F Neutrophils/100 leukocytes in Blood by Automated count 2024-10-22 22:14:10 61.9 % F Monocytes/100 leukocytes in Blood by Automated count 2024-10-22 22:14:10 6.7 % F Monocytes [#/volume] in Blood by Automated count 2024-10-22 22:14:10 477 Cells/uL F 0.0-1100.0 Basophils [#/volume] in Blood by Automated count 2024-10-22 22:14:10 14 Cells/uL F 0.0-400.0 Eosinophils [#/volume] in Blood by Automated count 2024-10-22 22:14:10 463 Cells/uL F 0.0-700.0 Neutrophils/100 leukocytes in Blood by Automated count 2024-10-22 22:14:10 61.9 % F Neutrophils [#/volume] in Blood by Automated count 2024-10-22 22:14:10 4407 Cells/uL F 2000.0-8800.0 Basophils/100 leukocytes in Blood by Automated count 2024-10-22 22:14:10 0.2 % F Leukocytes [#/volume] in Blood by Automated count 2024-10-22 22:14:10 7.1 x 10^3 cells/uL F 4.0-11.0 Lymphocytes [#/volume] in Blood by Automated count 2024-10-22 22:14:10 1752 Cells/uL F 620.0-3660.0 Monocytes/100 leukocytes in Blood by Automated count 2024-10-22 22:14:10 6.7 % F Monocytes [#/volume] in Blood by Automated count 2024-10-22 22:14:10 477 Cells/uL F 0.0-1100.0 Lymphocytes/100 leukocytes in Blood by Automated count 2024-10-22 22:14:10 24.6 % F Eosinophils/100 leukocytes in Blood by Automated count 2024-10-22 22:14:10 6.5 % F Monocytes/100 leukocytes in Blood by Automated count 2024-10-22 22:14:10 6.7 % F Lymphocytes/100 leukocytes in Blood by Automated count 2024-10-22 22:14:10 24.6 % F Eosinophils/100 leukocytes in Blood by Automated count 2024-10-22 22:14:10 6.5 % F Basophils/100 leukocytes in Blood by Automated count 2024-10-22 22:14:10 0.2 % F Neutrophils/100 leukocytes in Blood by Automated count 2024-10-22 22:14:10 61.9 % F Monocytes [#/volume] in Blood by Automated count 2024-10-22 22:14:10 477 Cells/uL F 0.0-1100.0 Monocytes [#/volume] in Blood by Automated count 2024-10-22 22:14:10 477 Cells/uL F 0.0-1100.0 Eosinophils [#/volume] in Blood by Automated count 2024-10-22 22:14:10 463 Cells/uL F 0.0-700.0 Basophils [#/volume] in Blood by Automated count 2024-10-22 22:14:10 14 Cells/uL F 0.0-400.0 Eosinophils [#/volume] in Blood by Automated count 2024-10-22 22:14:10 463 Cells/uL F 0.0-700.0 Neutrophils [#/volume] in Blood by Automated count 2024-10-22 22:14:10 4407 Cells/uL F 2000.0-8800.0 Leukocytes [#/volume] in Blood by Automated count 2024-10-22 22:14:10 7.1 x 10^3 cells/uL F 4.0-11.0 Lymphocytes [#/volume] in Blood by Automated count 2024-10-22 22:14:10 1752 Cells/uL F 620.0-3660.0 Basophils [#/volume] in Blood by Automated count 2024-10-22 22:14:10 14 Cells/uL F 0.0-400.0 Lymphocytes [#/volume] in Blood by Automated count 2024-10-22 22:14:10 1752 Cells/uL F 620.0-3660.0 Eosinophils [#/volume] in Blood by Automated count 2024-10-22 22:14:10 463 Cells/uL F 0.0-700.0 Eosinophils/100 leukocytes in Blood by Automated count 2024-10-22 22:14:10 6.5 % F Basophils/100 leukocytes in Blood by Automated count 2024-10-22 22:14:10 0.2 % F Neutrophils/100 leukocytes in Blood by Automated count 2024-10-22 22:14:10 61.9 % F Lymphocytes/100 leukocytes in Blood by Automated count 2024-10-22 22:14:10 24.6 % F Monocytes/100 leukocytes in Blood by Automated count 2024-10-22 22:14:10 6.7 % F Eosinophils/100 leukocytes in Blood by Automated count 2024-10-22 22:14:10 6.5 % F Leukocytes [#/volume] in Blood by Automated count 2024-10-22 22:14:10 7.1 x 10^3 cells/uL F 4.0-11.0 Neutrophils [#/volume] in Blood by Automated count 2024-10-22 22:14:10 4407 Cells/uL F 2000.0-8800.0 Lymphocytes [#/volume] in Blood by Automated count 2024-10-22 22:14:10 1752 Cells/uL F 620.0-3660.0 Monocytes [#/volume] in Blood by Automated count 2024-10-22 22:14:10 477 Cells/uL F 0.0-1100.0 Basophils [#/volume] in Blood by Automated count 2024-10-22 22:14:10 14 Cells/uL F 0.0-400.0 Eosinophils [#/volume] in Blood by Automated count 2024-10-22 22:14:10 463 Cells/uL F 0.0-700.0 Basophils/100 leukocytes in Blood by Automated count 2024-10-22 22:14:10 0.2 % F Monocytes/100 leukocytes in Blood by Automated count 2024-10-22 22:14:10 6.7 % F Neutrophils/100 leukocytes in Blood by Automated count 2024-10-22 22:14:10 61.9 % F Leukocytes [#/volume] in Blood by Automated count 2024-10-22 22:14:10 7.1 x 10^3 cells/uL F 4.0-11.0 Basophils [#/volume] in Blood by Automated count 2024-10-22 22:14:10 14 Cells/uL F 0.0-400.0 Neutrophils [#/volume] in Blood by Automated count 2024-10-22 22:14:10 4407 Cells/uL F 2000.0-8800.0 Leukocytes [#/volume] in Blood by Automated count 2024-10-22 22:14:10 7.1 x 10^3 cells/uL F 4.0-11.0 Lymphocytes [#/volume] in Blood by Automated count 2024-10-22 22:14:10 1752 Cells/uL F 620.0-3660.0 Monocytes/100 leukocytes in Blood by Automated count 2024-10-22 22:14:10 6.7 % F Eosinophils/100 leukocytes in Blood by Automated count 2024-10-22 22:14:10 6.5 % F Lymphocytes/100 leukocytes in Blood by Automated count 2024-10-22 22:14:10 24.6 % F Basophils/100 leukocytes in Blood by Automated count 2024-10-22 22:14:10 0.2 % F Neutrophils/100 leukocytes in Blood by Automated count 2024-10-22 22:14:10 61.9 % F MineralBone Disorder Description Draw Date Result/Unit Status Ref Range Result Comments 25-Hydroxyvitamin D3+25-Hydroxyvitamin D2 [Mass/volume] in Serum or Plasma 2024-10-23 04:25:43 25 ng/mL F 25-Hydroxyvitamin D3+25-Hydroxyvitamin D2 [Mass/volume] in Serum or Plasma 2024-10-23 04:25:43 25 ng/mL F 25-Hydroxyvitamin D3+25-Hydroxyvitamin D2 [Mass/volume] in Serum or Plasma 2024-10-23 04:25:43 25 ng/mL F 25-Hydroxyvitamin D3+25-Hydroxyvitamin D2 [Mass/volume] in Serum or Plasma 2024-10-23 04:25:43 25 ng/mL F 25-Hydroxyvitamin D3+25-Hydroxyvitamin D2 [Mass/volume] in Serum or Plasma 2024-10-23 04:25:43 25 ng/mL F 25-Hydroxyvitamin D3+25-Hydroxyvitamin D2 [Mass/volume] in Serum or Plasma 2024-10-23 04:25:43 25 ng/mL F 25-Hydroxyvitamin D3+25-Hydroxyvitamin D2 [Mass/volume] in Serum or Plasma 2024-10-23 04:25:43 25 ng/mL F Alkaline phosphatase [Enzymatic activity/volume] in Serum or Plasma 2024-10-22 20:14:17 172 U/L F 46.0-116.0 Alkaline phosphatase [Enzymatic activity/volume] in Serum or Plasma 2024-10-22 20:14:17 172 U/L F 46.0-116.0 Alkaline phosphatase [Enzymatic activity/volume] in Serum or Plasma 2024-10-22 20:14:17 172 U/L F 46.0-116.0 Alkaline phosphatase [Enzymatic activity/volume] in Serum or Plasma 2024-10-22 20:14:17 172 U/L F 46.0-116.0 Alkaline phosphatase [Enzymatic activity/volume] in Serum or Plasma 2024-10-22 20:14:17 172 U/L F 46.0-116.0 Alkaline phosphatase [Enzymatic activity/volume] in Serum or Plasma 2024-10-22 20:14:17 172 U/L F 46.0-116.0 Alkaline phosphatase [Enzymatic activity/volume] in Serum or Plasma 2024-10-22 20:14:17 172 U/L F 46.0-116.0 Nutrition Description Draw Date Result/Unit Status Ref Range Result Comments Potassium [Moles/volume] in Serum or Plasma 2024-10-23 05:02:34 4.8 mEq/L F 3.5-5.5 Potassium [Moles/volume] in Serum or Plasma 2024-10-23 05:02:34 4.8 mEq/L F 3.5-5.5 Potassium [Moles/volume] in Serum or Plasma 2024-10-23 05:02:34 4.8 mEq/L F 3.5-5.5 Potassium [Moles/volume] in Serum or Plasma 2024-10-23 05:02:34 4.8 mEq/L F 3.5-5.5 Potassium [Moles/volume] in Serum or Plasma 2024-10-23 05:02:34 4.8 mEq/L F 3.5-5.5 Potassium [Moles/volume] in Serum or Plasma 2024-10-23 05:02:34 4.8 mEq/L F 3.5-5.5 Potassium [Moles/volume] in Serum or Plasma 2024-10-23 05:02:34 4.8 mEq/L F 3.5-5.5 GLOBULIN 2024-10-22 20:15:13 3.4 g/dL F 0.9-5.0 A/G RATIO 2024-10-22 20:15:13 1.2 Calc F 1.0-2.5 GLOBULIN 2024-10-22 20:15:13 3.4 g/dL F 0.9-5.0 A/G RATIO 2024-10-22 20:15:13 1.2 Calc F 1.0-2.5 GLOBULIN 2024-10-22 20:15:13 3.4 g/dL F 0.9-5.0 GLOBULIN 2024-10-22 20:15:13 3.4 g/dL F 0.9-5.0 A/G RATIO 2024-10-22 20:15:13 1.2 Calc F 1.0-2.5 GLOBULIN 2024-10-22 20:15:13 3.4 g/dL F 0.9-5.0 A/G RATIO 2024-10-22 20:15:13 1.2 Calc F 1.0-2.5 A/G RATIO 2024-10-22 20:15:13 1.2 Calc F 1.0-2.5 GLOBULIN 2024-10-22 20:15:13 3.4 g/dL F 0.9-5.0 GLOBULIN 2024-10-22 20:15:13 3.4 g/dL F 0.9-5.0 A/G RATIO 2024-10-22 20:15:13 1.2 Calc F 1.0-2.5 A/G RATIO 2024-10-22 20:15:13 1.2 Calc F 1.0-2.5 Lactate dehydrogenase [Enzymatic activity/volume] in Serum or Plasma 2024-10-22 20:14:17 157 U/L F 120.0-246.0 Bicarbonate [Moles/volume] in Serum or Plasma 2024-10-22 20:14:17 24 mEq/L F 20.0-31.0 Albumin [Mass/volume] in Serum or Plasma by Bromocresol green (BCG) dye binding method 2024-10-22 20:14:17 4.1 g/dL F 3.4-4.8 Lactate dehydrogenase [Enzymatic activity/volume] in Serum or Plasma 2024-10-22 20:14:17 157 U/L F 120.0-246.0 Protein [Mass/volume] in Serum or Plasma 2024-10-22 20:14:17 7.5 g/dL F 5.7-8.2 Lactate dehydrogenase [Enzymatic activity/volume] in Serum or Plasma 2024-10-22 20:14:17 157 U/L F 120.0-246.0 Bicarbonate [Moles/volume] in Serum or Plasma 2024-10-22 20:14:17 24 mEq/L F 20.0-31.0 Albumin [Mass/volume] in Serum or Plasma by Bromocresol green (BCG) dye binding method 2024-10-22 20:14:17 4.1 g/dL F 3.4-4.8 Protein [Mass/volume] in Serum or Plasma 2024-10-22 20:14:17 7.5 g/dL F 5.7-8.2 Protein [Mass/volume] in Serum or Plasma 2024-10-22 20:14:17 7.5 g/dL F 5.7-8.2 Lactate dehydrogenase [Enzymatic activity/volume] in Serum or Plasma 2024-10-22 20:14:17 157 U/L F 120.0-246.0 Bicarbonate [Moles/volume] in Serum or Plasma 2024-10-22 20:14:17 24 mEq/L F 20.0-31.0 Albumin [Mass/volume] in Serum or Plasma by Bromocresol green (BCG) dye binding method 2024-10-22 20:14:17 4.1 g/dL F 3.4-4.8 Protein [Mass/volume] in Serum or Plasma 2024-10-22 20:14:17 7.5 g/dL F 5.7-8.2 Lactate dehydrogenase [Enzymatic activity/volume] in Serum or Plasma 2024-10-22 20:14:17 157 U/L F 120.0-246.0 Bicarbonate [Moles/volume] in Serum or Plasma 2024-10-22 20:14:17 24 mEq/L F 20.0-31.0 Albumin [Mass/volume] in Serum or Plasma by Bromocresol green (BCG) dye binding method 2024-10-22 20:14:17 4.1 g/dL F 3.4-4.8 Protein [Mass/volume] in Serum or Plasma 2024-10-22 20:14:17 7.5 g/dL F 5.7-8.2 Albumin [Mass/volume] in Serum or Plasma by Bromocresol green (BCG) dye binding method 2024-10-22 20:14:17 4.1 g/dL F 3.4-4.8 Bicarbonate [Moles/volume] in Serum or Plasma 2024-10-22 20:14:17 24 mEq/L F 20.0-31.0 Lactate dehydrogenase [Enzymatic activity/volume] in Serum or Plasma 2024-10-22 20:14:17 157 U/L F 120.0-246.0 Protein [Mass/volume] in Serum or Plasma 2024-10-22 20:14:17 7.5 g/dL F 5.7-8.2 Lactate dehydrogenase [Enzymatic activity/volume] in Serum or Plasma 2024-10-22 20:14:17 157 U/L F 120.0-246.0 Albumin [Mass/volume] in Serum or Plasma by Bromocresol green (BCG) dye binding method 2024-10-22 20:14:17 4.1 g/dL F 3.4-4.8 Bicarbonate [Moles/volume] in Serum or Plasma 2024-10-22 20:14:17 24 mEq/L F 20.0-31.0 Bicarbonate [Moles/volume] in Serum or Plasma 2024-10-22 20:14:17 24 mEq/L F 20.0-31.0 Albumin [Mass/volume] in Serum or Plasma by Bromocresol green (BCG) dye binding method 2024-10-22 20:14:17 4.1 g/dL F 3.4-4.8 Protein [Mass/volume] in Serum or Plasma 2024-10-22 20:14:17 7.5 g/dL F 5.7-8.2 Albumin [Mass/volume] in Serum or Plasma by Bromocresol green (BCG) dye binding method 2024-10-02 10:23:00 3.5 F Encounters No encounter information to report Immunizations Ordered Immunization Name Filled Immunization Name Date Status Comments Refusal Reason TB Skin Test 2024-08-09 05:00:00
[2025-04-20] MEDS: HYDROmorphone HCL INJ (*CRX) 1 MG/ML SYR 0.5 MG IV PUSH (17:59)
[2025-04-20 18:00] LABS: Alanine Aminotransferase 12 U/L (6-50); Albumin Level 4.1 g/dL (3.5-5.1); Alkaline Phosphatase 133 U/L (38-126); Anion Gap 16 mmol/L (4-12); Aspartate Amino Transferase 14 U/L (17-59); Bilirubin,Total 0.6 mg/dL (0.2-1.3); Blood Urea Nitrogen 42 mg/dL (9-20); Calcium 9.8 mg/dL (8.4-10.2); Carbon Dioxide 23 mmol/L (22-30); Chloride 98 mmol/L (98-107); Estimated CRCL calculation 11 ml/min; Estimated Glomerular Filt Rate 5; Glucose 102 mg/dL (65-110); Potassium 5.3 mmol/L (3.4-5.0); Sodium 137 mmol/L (137-145); Total Protein 7.5 g/dL (6.3-8.2)
[2025-04-20 18:07] LABS: Hematocrit 27.9 % (42.0-52.0); Hemoglobin 8.9 g/dL (14.0-18.0); Immature Granulocyte Percent A 0.3 % (0-0.5); Lymphocytes Absolute Auto 1.68 K/mm3 (0.9-3.2); Mean Corpuscular HGB Conc 31.9 g/dl (32-36); Mean Corpuscular Hemoglobin 29.2 pg (26-34); Mean Corpuscular Volume 91.5 fl (80-100); Nucleated Red Blood Cells Absolute Auto 0.000 K/mm3 (0.0-0.012); Nucleated Red Blood Cells Perc 0.0 % (0.0-0.2); Platelet Count Result 296 k/mm3 (150-375); Red Blood Count 3.05 M/mm3 (4.6-6.20); White Blood Count 9.5 K/mm3 (4.5-10.0)
[2025-04-20 18:09] LABS: NT Pro B Type Natriuretic Pept > 30000 pg/mL (19.9-100)
[2025-04-20] MEDS: FUROSEMIDE INJ 40 MG/4 ML VIAL IV PUSH (18:59)
--- NOTE | 2025-04-20 19:14 | PC.NURSE ---
Pt requesting more pain medication, EDP Lorri martin
--- NOTE | 2025-04-20 19:35 | PC.NURSE ---
Pt requesting pain medication. DARCIE Blackmon made aware.
== END 2025-04-20 20:16 | disposition home or self-care (01) ==
PROVIDERS: Emergency Medicine; Emergency Provider Registered Nurse
DX: R06.02 Shortness of breath (principal); D63.1 Anemia in chronic kidney disease; R60.0 Localized edema; Z91.158 Patient's noncompliance with renal dialysis for other reason; N18.6 End stage renal disease; Z99.2 Dependence on renal dialysis; I48.91 Unspecified atrial fibrillation; I50.9 Heart failure, unspecified; I05.0 Rheumatic mitral stenosis; I51.7 Cardiomegaly; R94.31 Abnormal electrocardiogram [ECG] [EKG]; R00.0 Tachycardia, unspecified
CPT/HCPCS: 36415; 71045; 80053; 83880; 85025; 93005; 96374; 96375; 96376; 99284; J0360; J1171; J1938